=== PATIENT | female | born 2000 | race Two or more races ===

== ENCOUNTER 2019-01-30 09:57 | Emergency (ER) | payer OTHER ==
[~2019-01-30] VITALS: Ht 142.2 cm; Wt 37.3 kg
[2019-01-30 10:37] LABS: Basophils # (auto) 0 uL; Basophils % (auto) 0.4 % (0.0-2.0); Eosinophils # (auto) 0 uL; Eosinophils % (auto) 0.5 % (0.0-7.0); Hemoglobin 13.5 g/dL (12.2-16.2); Lymphocytes # (auto) 1.4 uL; Lymphocytes % (auto) 21.8 % (10.0-50.0); Mean Corpuscular Hgb Conc. 33.7 g/dL (32.0-36.0); Mean Corpuscular Volume 97.9 fL (80.0-100.0); Monocytes # (auto) 0.4 uL; Neutrophils # (auto) 4.5 uL; Neutrophils % (auto) 70.3 % (37.0-80.0); Platelet Count (auto) 231 10^3/uL (140-450); Red Blood Cells 4.09 10^6/uL (4.0-5.20); Red Cell Distribution Width 13.1 % (11.8-14.3); White Blood Cell 6.4 10^3/uL (4.4-10.8)
[2019-01-30 10:41] LABS: Urine Amorphous Crystal FEW /hpf (None Seen); Urine Bacteria NONE SEEN /hpf (None Seen); Urine Blood 2+ /uL (Negative); Urine Specific Gravity 1.015 (1.001-1.035); Urine WBC 1 /hpf (0 - 5)
[2019-01-30 10:42] LABS: Alcohol, Urine < 3.0 mg/dL (0-5); Amphetamine Screen, Urine NEGATIVE (NEGATIVE); Barbiturate Scree,Urine NEGATIVE (NEGATIVE); Benzodiazephine Screen, Urine NEGATIVE (NEGATIVE); Cannabinoid Screen, Urine POSITIVE (NEGATIVE); Cocaine Screen, Urine POSITIVE (NEGATIVE); Opiate Scree,Urine NEGATIVE (NEGATIVE); Phencyclidine Screen, Urine NEGATIVE (NEGATIVE)
[2019-01-30 10:54] LABS: Salicylate < 1.7 mg/dL (2.8-20.0)
[2019-01-30 11:02] LABS: Albumin 4.1 g/dL (3.4-5.0); BUN/Creatinine Ratio 11.6; Bilirubin, Total 0.5 mg/dL (0.2-1.0); Calcium 9.1 mg/dL (8.5-10.1); Total Protein 8.1 g/dL (6.4-8.2)
[2019-01-30] MEDS ORDERED: LORazepam 2MG/ML-1ML VIAL IV ONE (11:45)
[2019-01-30 12:08] LABS: Acetaminophen < 2.0 ug/mL (10-30)
[2019-01-30] MEDS ORDERED: SULFAMETHOX W/TRIMETH(800/160MG) DS TAB PO ONE (16:45)
[2019-01-30] MEDS ORDERED: ACETAMINOPHEN 500 MG TAB PO ONE (17:30)
[2019-01-30] MEDS ORDERED: LORazepam 0.5 MG TAB PO ONE (22:45)
[2019-01-30] MEDS ORDERED: ACETAMINOPHEN 325 MG TAB PO ONE (22:45)
[2019-01-31 05:10] VITALS: BP 112/79
[2019-01-31] MEDS ORDERED: CEPHALEXIN 250 MG CAP PO SCH (06:00)
== END 2019-01-31 05:57 | disposition short-term general hospital (02) ==
LOC: ER 10:02
DX: R45.851 Suicidal ideations (principal); F32.9 Major depressive disorder, single episode, unspecified; F41.9 Anxiety disorder, unspecified; F14.10 Cocaine abuse, uncomplicated
CPT/HCPCS: 36415; 80053; 80307; 80329; 81001; 81025; 85025; 96374; 99285; J2060

== ENCOUNTER 2019-03-03 23:11 | Emergency (ER) | payer OTHER ==
[~2019-03-03] VITALS: Ht 142.2 cm; Wt 36.3 kg
[2019-03-04 00:06] LABS: Basophils # (auto) 0 uL; Basophils % (auto) 0.3 % (0.0-2.0); Eosinophils # (auto) 0.1 uL; Eosinophils % (auto) 0.5 % (0.0-7.0); Hematocrit 41.6 % (36.0-46.0); Hemoglobin 14.3 g/dL (12.2-16.2); Lymphocytes # (auto) 2.2 uL; Lymphocytes % (auto) 19.2 % (10.0-50.0); Mean Corpuscular Hemoglobin 32.9 pg (28.0-32.0); Mean Corpuscular Hgb Conc. 34.4 g/dL (32.0-36.0); Mean Corpuscular Volume 95.9 fL (80.0-100.0); Monocytes # (auto) 0.7 uL; Monocytes % (auto) 6.2 % (0.0-12.0); Neutrophils # (auto) 8.4 uL; Neutrophils % (auto) 73.8 % (37.0-80.0); Platelet Count (auto) 352 10^3/uL (140-450); Red Blood Cells 4.34 10^6/uL (4.0-5.20); Red Cell Distribution Width 13.6 % (11.8-14.3); White Blood Cell 11.4 10^3/uL (4.4-10.8)
[2019-03-04 00:23] LABS: Albumin 4.2 g/dL (3.4-5.0); BUN/Creatinine Ratio 17.9; Calcium 8.4 mg/dL (8.5-10.1); Potassium 3.8 mmol/L (3.5-5.1)
[2019-03-04 00:26] LABS: Bilirubin, Total 0.2 mg/dL (0.2-1.0); Total Protein 8.1 g/dL (6.4-8.2)
[2019-03-04 01:47] LABS: Urine Bacteria NONE SEEN /hpf (None Seen); Urine Blood Negative /uL (Negative); Urine Specific Gravity 1.022 (1.001-1.035); Urine WBC 7 /hpf (0 - 5)
[2019-03-04 06:10] VITALS: BP 105/70
[2019-03-04] MEDS ORDERED: HYDROcodone-ACET 5/325MG TAB PO ONE (06:15)
== END 2019-03-04 06:21 | disposition home or self-care (01) ==
LOC: ER 23:15
DX: N83.202 Unspecified ovarian cyst, left side (principal); K59.00 Constipation, unspecified
CPT/HCPCS: 36415; 74176; 80053; 81001; 81025; 82150; 83690; 85025

== ENCOUNTER 2020-01-27 21:57 | Emergency (ER) | payer OTHER ==
[~2020-01-27] VITALS: Ht 142.2 cm; Wt 39.5 kg
[2020-01-27 22:38] VITALS: BP 119/96
[2020-01-27] MEDS ORDERED: FLUORESCEIN SOD 1 MG TEST STRIP RIGHTEYE ONE (23:00)
[2020-01-27] MEDS ORDERED: TETRACAINE HCL 0.5% OPTH(EYE) SOLN 4ML RIGHTEYE ONE (23:00)
== END 2020-01-27 23:25 | disposition home or self-care (01) ==
LOC: ER 21:57
DX: H10.31 Unspecified acute conjunctivitis, right eye (principal)

== ENCOUNTER 2020-05-09 20:40 | Emergency (ER) | payer OTHER ==
[~2020-05-09] VITALS: Ht 149.9 cm; Wt 49.9 kg
[2020-05-09 23:01] LABS: Basophils # (auto) 0 10 ^3/uL (0-0.2); Eosinophils # (auto) 0.1 10 ^3/uL (0-0.8); Lymphocytes # (auto) 1.7 10 ^3/uL (0.4-5.4); Monocytes # (auto) 0.4 10 ^3/uL (0-1.3)
[2020-05-09 23:04] LABS: Basophils % (auto) 0.2 % (0.0-2.0); Eosinophils % (auto) 0.9 % (0.0-7.0); Hematocrit 40.9 % (36.0-46.0); Hemoglobin 14.2 g/dL (12.2-16.2); Lymphocytes % (auto) 21.5 % (10.0-50.0); Mean Corpuscular Hemoglobin 32.5 pg (28.0-32.0); Mean Corpuscular Hgb Conc. 34.8 g/dL (32.0-36.0); Mean Corpuscular Volume 93.5 fL (80.0-100.0); Monocytes % (auto) 5.2 % (0.0-12.0); Neutrophils # (auto) 5.8 10 ^3/uL (1.6-8.6); Neutrophils % (auto) 72.2 % (37.0-80.0); Platelet Count (auto) 596 10^3/uL (140-450); Red Blood Cells 4.37 10^6/uL (4.0-5.20); Red Cell Distribution Width 13.9 % (11.8-14.3)
[2020-05-09] MEDS: ACETAMINOPHEN 500 MG TAB PO ONE (23:15)
[2020-05-09 23:21] LABS: Potassium 4.3 mmol/L (3.5-5.1)
[2020-05-09 23:27] LABS: Albumin 3.7 g/dL (3.4-5.0); BUN/Creatinine Ratio 17.9; Calcium 8.9 mg/dL (8.5-10.1)
[2020-05-09 23:29] LABS: Bilirubin, Total 0.1 mg/dL (0.2-1.0)
[2020-05-10 00:22] LABS: Urine Amorphous Crystal MOD /hpf (None Seen); Urine Bacteria FEW /hpf (None Seen); Urine Blood 2+ /uL (Negative); Urine Specific Gravity 1.019 (1.001-1.035); Urine WBC 1 /hpf (0 - 5)
[2020-05-10 02:00] VITALS: BP 120/85
== END 2020-05-10 02:40 | disposition home or self-care (01) ==
LOC: EDBD 20:40 → ER 20:40
DX: R10.33 Periumbilical pain (principal); N73.9 Female pelvic inflammatory disease, unspecified; F12.10 Cannabis abuse, uncomplicated; F14.10 Cocaine abuse, uncomplicated
CPT/HCPCS: 36415; 74176; 80053; 81001; 85025

== ENCOUNTER 2020-09-18 10:52 | Emergency (ER) | payer MEDICAID, OTHER ==
[~2020-09-18] VITALS: Ht 149.9 cm; Wt 43.1 kg
[2020-09-18 11:48] VITALS: BP 127/94
[2020-09-18 12:23] LABS: Urine Bacteria FEW /hpf (None Seen); Urine Blood Negative /uL (Negative); Urine Mucus FEW (None Seen); Urine Specific Gravity 1.014 (1.001-1.035); Urine WBC 17 /hpf (0 - 5)
[2020-09-18] MEDS ORDERED: ACETAMINOPHEN 500 MG TAB PO ONE (12:30)
[2020-09-18 12:35] LABS: Alcohol, Urine < 3.0 mg/dL (0-10); Amphetamine Screen, Urine NEGATIVE (NEGATIVE); Barbiturate Scree,Urine NEGATIVE (NEGATIVE); Benzodiazephine Screen, Urine NEGATIVE (NEGATIVE); Cannabinoid Screen, Urine NEGATIVE (NEGATIVE); Cocaine Screen, Urine NEGATIVE (NEGATIVE); Opiate Scree,Urine NEGATIVE (NEGATIVE); Phencyclidine Screen, Urine NEGATIVE (NEGATIVE)
== END 2020-09-18 13:42 | disposition home or self-care (01) ==
LOC: ER 10:52
DX: N76.0 Acute vaginitis (principal); B96.89 Other specified bacterial agents as the cause of diseases classified elsewhere; N39.0 Urinary tract infection, site not specified; Z90.49 Acquired absence of other specified parts of digestive tract
CPT/HCPCS: 80307; 81001; 81002; 81025; 87210

== ENCOUNTER 2022-06-30 20:21 | Emergency (ER) | payer MEDICAID, OTHER ==
[~2022-06-30] VITALS: Ht 149.9 cm; Wt 50.2 kg
[2022-07-01] MEDS ORDERED: IBUP800T27 PO (02:24)
[2022-07-01] MEDS ORDERED: CYCL-837 PO (02:24)
[2022-07-01] MEDS ORDERED: KETOROLAC TROMETH 60MG/2ML VIAL IM ONE (02:30)
[2022-07-01 03:24] LABS: Urine Bacteria NONE SEEN /hpf (None Seen); Urine Blood 2+ /uL (Negative); Urine Mucus FEW (None Seen); Urine Specific Gravity 1.012 (1.001-1.035); Urine WBC 13 /hpf (0 - 5)
[2022-07-01] MEDS ORDERED: SULF800T7 PO (03:42)
[2022-07-01 03:54] VITALS: BP 105/76
== END 2022-07-01 04:03 | disposition home or self-care (01) ==
LOC: ER 20:21
DX: S39.012A Strain of muscle, fascia and tendon of lower back, initial encounter (principal); N39.0 Urinary tract infection, site not specified; Z79.899 Other long term (current) drug therapy; Z88.6 Allergy status to analgesic agent; Z90.49 Acquired absence of other specified parts of digestive tract; X50.0XXA Overexertion from strenuous movement or load, initial encounter; Y93.89 Activity, other specified; Y92.89 Other specified places as the place of occurrence of the external cause; Y99.8 Other external cause status
CPT/HCPCS: 81001; 81025; 96372; 99283; J1885

== ENCOUNTER 2023-04-17 13:39 | Emergency (ER) | payer SELFPAY ==
[~2023-04-17] VITALS: Ht 142.2 cm; Wt 45.0 kg
[~2023-04-17 13:39] MED LIST: CYCL-837 PO; IBUP-1456 PO; SULF800T23 PO
[2023-04-17] MEDS ORDERED: HYDR2.5C39 TOP (15:05)
[2023-04-17] MEDS ORDERED: NAPR-746 PO (15:05)
[2023-04-17] MEDS ORDERED: CEPH500C PO (15:05)
[2023-04-17 15:16] VITALS: BP 133/98; PULSE 111; RESP 18; TEMP 98.7; O2SAT 99
== END 2023-04-17 15:21 | disposition home or self-care (01) ==
LOC: ER 13:39
DX: S30.820A Blister (nonthermal) of lower back and pelvis, initial encounter (principal); K64.4 Residual hemorrhoidal skin tags; Z98.890 Other specified postprocedural states; Z79.899 Other long term (current) drug therapy; X58.XXXA Exposure to other specified factors, initial encounter; Y93.89 Activity, other specified; Y92.89 Other specified places as the place of occurrence of the external cause; Y99.8 Other external cause status

== ENCOUNTER 2024-01-01 08:53 | Inpatient (IN) | payer MEDICAID, SELFPAY ==
[~2024-01-01] VITALS: Ht 142.2 cm; Wt 47.7 kg
[~2024-01-01 08:53] MED LIST changes: +CEPH500C PO; +HYDR2.5C39 TOP; +NAPR-746 PO
[2024-01-01] MEDS ORDERED: PHENAZOPYRIDINE HCL 100 MG TAB PO ONE (09:15)
[2024-01-01] MEDS: ACETAMINOPHEN 325 MG TAB PO ONE (09:55)
[2024-01-01] MEDS: ONDANSETRON ODT 4 MG TAB PO ONE (09:55)
[2024-01-01 10:31] LABS: Basophils # (auto) 0 10 ^3/uL (0-0.2); Basophils % (auto) 0.2 % (0.0-2.0); Eosinophils # (auto) 0 10 ^3/uL (0-0.8); Hematocrit 37.2 % (36.0-46.0); Hemoglobin 12.8 g/dL (12.2-16.2); Lymphocytes % (auto) 5.4 % (10.0-50.0); Mean Corpuscular Hemoglobin 32.9 pg (28.0-32.0); Mean Corpuscular Hgb Conc. 34.5 g/dL (32.0-36.0); Mean Corpuscular Volume 95.4 fL (80.0-100.0); Monocytes # (auto) 1.2 10 ^3/uL (0-1.3); Monocytes % (auto) 6.4 % (0.0-12.0); Neutrophils # (auto) 16.9 10 ^3/uL (1.6-8.6); Platelet Count (auto) 227 10^3/uL (140-450); Red Cell Distribution Width 13.7 % (11.8-14.3); White Blood Cell 19.2 10^3/uL (4.4-10.8)
[2024-01-01 10:43] LABS: Urine Bacteria FEW /hpf (None Seen); Urine Blood 2+ /uL (Negative); Urine Protein, UAD 1+ (Negative); Urine Specific Gravity 1.015 (1.001-1.035); Urine Urobilinogen Normal (Negative); Urine WBC 2354 /hpf (0 - 5); Urine WBC Clumps PRESENT /hpf (None Seen)
[2024-01-01 10:44] LABS: Urine Clarity Cloudy (Clear); Urine Color Yellow (Yellow)
[2024-01-01 10:45] LABS: Alanine Aminotransferase 20 U/L (7-40); Alkaline Phosphatase 66 U/L (46-116); Anion Gap 9 (5-15); Aspartate Aminotransferase 21 U/L (13-40); BUN/Creatinine Ratio 6.8 (10.0-20.0); Bilirubin, Total 0.9 mg/dL (0.2-1.0); Blood Urea Nitrogen 7 mg/dL (9-23); Calcium 9.7 mg/dL (8.7-10.4); Carbon Dioxide 25 mmol/L (20-31); Chloride 105 mmol/L (98-107); Glucose 129 mg/dL (74-106); Potassium 3.5 mmol/L (3.5-5.1); Sodium 139 mmol/L (136-145)
[2024-01-01 11:21] VITALS: PULSE 110; RESP 20; O2SAT 99
[2024-01-01] MEDS: levoFLOXacin 500MG 100 ML IV ONE (11:36)
[2024-01-01] MEDS: SODIUM CHLORIDE 0.9% 1,000 ML IV ONE ×2 (11:36→12:45)
[2024-01-01] MEDS: cefTRIAXone 1GM/50ML D5W 50 ML IV ONE (11:54)
[2024-01-01] MEDS: diphenhdrAMINE HCL 50 MG/1 ML VL IV ONE (11:54)
[2024-01-01] MEDS: ONDANSETRON HCL 4 MG/2 ML VIAL IV ONE (13:27)
[2024-01-01] MEDS: MORPHINE SULFATE 4 MG/ML SYR/VIAL IV ONE (13:27)
[2024-01-01] MEDS ORDERED: ACETAMINOPHEN 325 MG TAB PO PRN (13:30)
[2024-01-01 15:54] VITALS: BP 98/52; PULSE 107; RESP 20; TEMP 100.3; O2SAT 97
[2024-01-01 17:07] VITALS: BP 98/2; PULSE 107; RESP 20; TEMP 101.3; O2SAT 97
[2024-01-01] MEDS: HYDROcodone-ACET 5/325MG TAB PO PRN (17:55)
[2024-01-01] MEDS: KETOROLAC TROMETH 30 MG/ML 1ML VIAL IV PRN (20:56)
[2024-01-01 21:00] VITALS: BP 108/65; PULSE 100; RESP 19; TEMP 98.2; O2SAT 97
[2024-01-01] MEDS: ONDANSETRON HCL 4 MG/2 ML VIAL IV PRN (22:47)
[2024-01-02 01:06] VITALS: BP 95/64; PULSE 75; RESP 19; TEMP 98.5; O2SAT 98
[2024-01-02 05:00] VITALS: BP 93/56; PULSE 80; RESP 17; TEMP 98.5; O2SAT 98
[2024-01-02 06:45] LABS: Basophils # (auto) 0 10 ^3/uL (0-0.2); Basophils % (auto) 0.1 % (0.0-2.0); Eosinophils # (auto) 0 10 ^3/uL (0-0.8); Eosinophils % (auto) 0.1 % (0.0-7.0); Hematocrit 33.1 % (36.0-46.0); Hemoglobin 11.5 g/dL (12.2-16.2); Lymphocytes # (auto) 1.8 10 ^3/uL (0.4-5.4); Lymphocytes % (auto) 9.4 % (10.0-50.0); Mean Corpuscular Hemoglobin 33.3 pg (28.0-32.0); Mean Corpuscular Hgb Conc. 34.6 g/dL (32.0-36.0); Mean Corpuscular Volume 96.2 fL (80.0-100.0); Monocytes # (auto) 0.8 10 ^3/uL (0-1.3); Monocytes % (auto) 4.5 % (0.0-12.0); Neutrophils # (auto) 16.4 10 ^3/uL (1.6-8.6); Neutrophils % (auto) 85.9 % (37.0-80.0); Platelet Count (auto) 160 10^3/uL (140-450); Red Blood Cells 3.44 10^6/uL (4.0-5.20); Red Cell Distribution Width 13.9 % (11.8-14.3)
[2024-01-02 06:50] LABS: Anion Gap 8 (5-15); Calcium 8.3 mg/dL (8.7-10.4); Carbon Dioxide 22 mmol/L (20-31); Chloride 108 mmol/L (98-107); Potassium 3.5 mmol/L (3.5-5.1); Sodium 138 mmol/L (136-145)
[2024-01-02 06:56] LABS: BUN/Creatinine Ratio 8.1 (10.0-20.0); Blood Urea Nitrogen 7 mg/dL (9-23); Glucose 94 mg/dL (74-106)
[2024-01-02 09:00] VITALS: BP 106/65; PULSE 95; RESP 20; TEMP 100.4; O2SAT 95
[2024-01-02] MEDS: cefTRIAXone 1GM/50ML D5W 50 ML IV SCH (09:07)
[2024-01-02 13:12] VITALS: BP 100/58; PULSE 76; RESP 20; TEMP 98.9; O2SAT 97
[2024-01-02 17:00] VITALS: BP 134/87; PULSE 91; RESP 18; TEMP 97.6; O2SAT 98
[2024-01-02 21:00] VITALS: BP 146/79; PULSE 90; RESP 18; TEMP 98.6; O2SAT 99
[2024-01-03] VITALS (8 sets, daily range): BP systolic 108–134; BP diastolic 59–80; PULSE 55–123; RESP 16–21; TEMP 97.5–98.2; O2SAT 96–99
[2024-01-03 09:03] LABS: Hepatitis B Surface Antigen Negative (Negative)
[2024-01-03 09:28] LABS: Hepatitis B Core IgM Negative
[2024-01-03 09:29] LABS: Hepatitis A Ab IgM Negative; Hepatitis C Antibody Negative (Negative)
[2024-01-03] MEDS: AZITHROMYCIN 500MG/ 250ML 250 ML IV ONE (13:08)
[2024-01-03] MEDS: guaiFENesin-DM 100/10mg/5ml SYR PO PRN (13:08)
[2024-01-03] MEDS: SODIUM CHLORIDE 0.9% 1,000 ML IV SCH (13:09)
[2024-01-03] MEDS: cefTRIAXone 1GM/50ML D5W 50 ML IV SCH (23:03)
[2024-01-04] VITALS (9 sets, daily range): BP systolic 116–144; BP diastolic 63–94; PULSE 55–106; RESP 16–18; TEMP 97.6–99.7; O2SAT 95–100
[2024-01-04 00:02] LABS: COVID19 ANTIGEN SOFIA FIA NEGATIVE (NEGATIVE)
[2024-01-04 07:27] LABS: Anion Gap 9 (5-15); Carbon Dioxide 23 mmol/L (20-31); Chloride 110 mmol/L (98-107); Potassium 3.5 mmol/L (3.5-5.1); Sodium 142 mmol/L (136-145)
[2024-01-04 07:28] LABS: Calcium 8.4 mg/dL (8.7-10.4)
[2024-01-04 07:33] LABS: Glucose 95 mg/dL (74-106)
[2024-01-04 07:35] LABS: BUN/Creatinine Ratio 7.4 (10.0-20.0); Blood Urea Nitrogen < 5 mg/dL (9-23)
[2024-01-04 07:47] LABS: Basophils # (auto) 0 10 ^3/uL (0-0.2); Basophils % (auto) 0.2 % (0.0-2.0); Eosinophils # (auto) 0.1 10 ^3/uL (0-0.8); Eosinophils % (auto) 2.2 % (0.0-7.0); Hematocrit 29.8 % (36.0-46.0); Hemoglobin 10.3 g/dL (12.2-16.2); Lymphocytes # (auto) 1.4 10 ^3/uL (0.4-5.4); Lymphocytes % (auto) 28.3 % (10.0-50.0); Mean Corpuscular Hgb Conc. 34.7 g/dL (32.0-36.0); Mean Corpuscular Volume 95.2 fL (80.0-100.0); Monocytes # (auto) 0.7 10 ^3/uL (0-1.3); Monocytes % (auto) 13.5 % (0.0-12.0); Neutrophils # (auto) 2.8 10 ^3/uL (1.6-8.6); Neutrophils % (auto) 55.8 % (37.0-80.0); Platelet Count (auto) 184 10^3/uL (140-450); Red Blood Cells 3.13 10^6/uL (4.0-5.20); Red Cell Distribution Width 13.7 % (11.8-14.3)
[2024-01-04] MEDS: AZITHROMYCIN 250 MG TAB PO SCH (09:54)
[2024-01-04] MEDS ORDERED: AZITHROMYCIN 500MG/ 250ML 250 ML IV SCH (11:00)
[2024-01-05] VITALS (7 sets, daily range): BP systolic 101–136; BP diastolic 46–88; PULSE 54–106; RESP 17–20; TEMP 97–99.5; O2SAT 96–98
[2024-01-05 10:15] LABS: Basophils # (auto) 0 10 ^3/uL (0-0.2); Basophils % (auto) 0.2 % (0.0-2.0); Eosinophils # (auto) 0.2 10 ^3/uL (0-0.8); Eosinophils % (auto) 2.8 % (0.0-7.0); Hematocrit 34.4 % (36.0-46.0); Hemoglobin 11.7 g/dL (12.2-16.2); Lymphocytes # (auto) 1.2 10 ^3/uL (0.4-5.4); Lymphocytes % (auto) 21.7 % (10.0-50.0); Mean Corpuscular Hemoglobin 32.4 pg (28.0-32.0); Mean Corpuscular Hgb Conc. 34.1 g/dL (32.0-36.0); Mean Corpuscular Volume 94.9 fL (80.0-100.0); Monocytes # (auto) 0.5 10 ^3/uL (0-1.3); Monocytes % (auto) 9.5 % (0.0-12.0); Neutrophils # (auto) 3.7 10 ^3/uL (1.6-8.6); Neutrophils % (auto) 65.8 % (37.0-80.0); Platelet Count (auto) 276 10^3/uL (140-450); Red Blood Cells 3.63 10^6/uL (4.0-5.20); Red Cell Distribution Width 13.7 % (11.8-14.3); White Blood Cell 5.6 10^3/uL (4.4-10.8)
[2024-01-05] MEDS: MORPHINE SULFATE INJ 2 MG/ml SYRG IV PRN (11:40)
[2024-01-05] MEDS ORDERED: IOHEXOL 300 MG/ML 100ML BOTTLE IJ ONE (16:16)
[2024-01-06] VITALS (8 sets, daily range): BP systolic 90–128; BP diastolic 52–98; PULSE 66–81; RESP 16–18; TEMP 97.6–98.7; O2SAT 92–100
[2024-01-06 05:54] LABS: Chloride 107 mmol/L (98-107); Potassium 3.8 mmol/L (3.5-5.1); Sodium 141 mmol/L (136-145)
[2024-01-06 05:55] LABS: Anion Gap 9 (5-15); Carbon Dioxide 25 mmol/L (20-31)
[2024-01-06 05:56] LABS: Calcium 8.8 mg/dL (8.7-10.4)
[2024-01-06 05:58] LABS: Basophils # (auto) 0 10 ^3/uL (0-0.2); Basophils % (auto) 0.3 % (0.0-2.0); Eosinophils # (auto) 0.3 10 ^3/uL (0-0.8); Eosinophils % (auto) 4.8 % (0.0-7.0); Hematocrit 31.8 % (36.0-46.0); Hemoglobin 11.2 g/dL (12.2-16.2); Lymphocytes # (auto) 1.5 10 ^3/uL (0.4-5.4); Mean Corpuscular Hemoglobin 33.1 pg (28.0-32.0); Mean Corpuscular Hgb Conc. 35.1 g/dL (32.0-36.0); Mean Corpuscular Volume 94.2 fL (80.0-100.0); Monocytes # (auto) 0.6 10 ^3/uL (0-1.3); Monocytes % (auto) 12.1 % (0.0-12.0); Neutrophils # (auto) 2.9 10 ^3/uL (1.6-8.6); Neutrophils % (auto) 54.8 % (37.0-80.0); Nucleated Red Blood Cells % 0.1 %; Platelet Count (auto) 309 10^3/uL (140-450); Red Blood Cells 3.38 10^6/uL (4.0-5.20); Red Cell Distribution Width 13.6 % (11.8-14.3); White Blood Cell 5.3 10^3/uL (4.4-10.8)
[2024-01-06 06:01] LABS: Glucose 82 mg/dL (74-106)
[2024-01-06 06:14] LABS: BUN/Creatinine Ratio 6.8 (10.0-20.0); Blood Urea Nitrogen < 5 mg/dL (9-23)
[2024-01-06] MEDS ORDERED: LEVO500T91 PO (14:03)
[2024-01-06] MEDS ORDERED: CEFD300C2 PO (15:11)
== END 2024-01-06 15:45 | disposition home or self-care (01) | DRG 871 ==
LOC: ER 08:53 → OVERFLOW 13:24 → CENTRAL 15:21 → WEST WING 01-03 02:42
PROVIDERS: ADMIT Registered Nurse General Practice; ATTEND Internal Medicine
DX: A40.9 Streptococcal sepsis, unspecified (principal); N17.0 Acute kidney failure with tubular necrosis; N10 Acute pyelonephritis; B96.20 Unspecified Escherichia coli [E. coli] as the cause of diseases classified elsewhere; Z20.822 Contact with and (suspected) exposure to COVID-19; N20.0 Calculus of kidney; Z88.1 Allergy status to other antibiotic agents; Z90.49 Acquired absence of other specified parts of digestive tract
CPT/HCPCS: 36415; 71045; 74176; 74177; 80048; 80053; 80074; 81001; 81025; 83036; 84702; 85025; 87086; 87088; 87186; 87426; 96365; 96368; 96375; G0378; J1885; J1956; J2405; Q0162

== ENCOUNTER 2024-01-11 16:24 | Emergency (ER) | payer SELFPAY ==
[~2024-01-11] VITALS: Ht 142.2 cm; Wt 44.6 kg
[~2024-01-11 16:24] MED LIST changes: +CEFD300C2 PO; -CEPH500C PO; -CYCL-837 PO; -HYDR2.5C39 TOP; -IBUP-1456 PO; -NAPR-746 PO; -SULF800T23 PO
[2024-01-11 16:35] VITALS: BP 115/90; PULSE 81; RESP 16; O2SAT 98
[2024-01-11] MEDS: KETOROLAC TROMETH 30 MG/ML 1ML VIAL IM ONE (17:06)
[2024-01-11 17:56] LABS: Urine Bacteria None Seen /hpf (None Seen)
[2024-01-11 18:15] LABS: Urine Blood Negative /uL (Negative); Urine Clarity Clear (Clear); Urine Color Colorless (Yellow); Urine Protein, UAD Negative (Negative); Urine Specific Gravity 1.007 (1.001-1.035); Urine Urobilinogen Normal (Negative); Urine WBC 1 /hpf (0 - 5)
== END 2024-01-11 18:45 | disposition left against medical advice (07) ==
LOC: ER 16:24
DX: N12 Tubulo-interstitial nephritis, not specified as acute or chronic (principal); Z87.440 Personal history of urinary (tract) infections; Z87.442 Personal history of urinary calculi; Z88.1 Allergy status to other antibiotic agents
CPT/HCPCS: 81001; 96372; 99283; J1885

== ENCOUNTER 2024-01-12 10:02 | Emergency (ER) | payer SELFPAY ==
[~2024-01-12] VITALS: Ht 152.4 cm; Wt 44.1 kg
[2024-01-12 10:49] LABS: Urine Bacteria FEW /hpf (None Seen); Urine Blood TRACE /uL (Negative); Urine Clarity Clear (Clear); Urine Color Colorless (Yellow); Urine Protein, UAD Negative (Negative); Urine Specific Gravity 1.003 (1.001-1.035); Urine Urobilinogen Normal (Negative); Urine WBC <1 /hpf (0 - 5)
[2024-01-12 11:05] VITALS: O2SAT 95
[2024-01-12] MEDS: SODIUM CHLORIDE 0.9% 1,000 ML IV ONE (11:15)
[2024-01-12 11:35] VITALS: TEMP 98.2
[2024-01-12 11:38] LABS: Basophils # (auto) 0 10 ^3/uL (0-0.2); Eosinophils # (auto) 0 10 ^3/uL (0-0.8); Lymphocytes # (auto) 1.9 10 ^3/uL (0.4-5.4); Monocytes # (auto) 0.3 10 ^3/uL (0-1.3)
[2024-01-12 11:40] LABS: Basophils % (auto) 0.3 % (0.0-2.0); Eosinophils % (auto) 0.7 % (0.0-7.0); Hematocrit 38.4 % (36.0-46.0); Hemoglobin 13.2 g/dL (12.2-16.2); Lymphocytes % (auto) 32.3 % (10.0-50.0); Mean Corpuscular Hemoglobin 32.4 pg (28.0-32.0); Mean Corpuscular Hgb Conc. 34.4 g/dL (32.0-36.0); Mean Corpuscular Volume 94.3 fL (80.0-100.0); Monocytes % (auto) 5.5 % (0.0-12.0); Neutrophils # (auto) 3.7 10 ^3/uL (1.6-8.6); Neutrophils % (auto) 61.2 % (37.0-80.0); Platelet Count (auto) 658 10^3/uL (140-450); Red Blood Cells 4.08 10^6/uL (4.0-5.20); Red Cell Distribution Width 14.1 % (11.8-14.3)
[2024-01-12 11:47] LABS: Alanine Aminotransferase 17 U/L (7-40); Albumin 4.9 g/dL (3.2-4.8); Alkaline Phosphatase 60 U/L (46-116); Anion Gap 5 (5-15); Aspartate Aminotransferase 15 U/L (13-40); BUN/Creatinine Ratio 10.4 (10.0-20.0); Bilirubin, Total 0.4 mg/dL (0.2-1.0); Blood Urea Nitrogen 8 mg/dL (9-23); Calcium 10.2 mg/dL (8.7-10.4); Carbon Dioxide 27 mmol/L (20-31); Chloride 107 mmol/L (98-107); Glucose 96 mg/dL (74-106); Potassium 4.1 mmol/L (3.5-5.1); Sodium 139 mmol/L (136-145); Total Protein 8.1 g/dL (5.7-8.2)
[2024-01-12] MEDS: fentaNYL CITRATE 100 MCG/2 ML VL IV ONE (11:54)
[2024-01-12] MEDS: IOHEXOL 300 MG/ML 100ML BOTTLE IJ ONE (12:11)
[2024-01-12 13:35] VITALS: BP 107/65; PULSE 70; RESP 18; O2SAT 97
[2024-01-12 14:47] LABS: Erythrocyte Sedimentation Rate 21 mm/hr (0-20)
== END 2024-01-12 18:02 | disposition left against medical advice (07) ==
LOC: ER 10:02
DX: R10.32 Left lower quadrant pain (principal); R10.2 Pelvic and perineal pain; Z87.440 Personal history of urinary (tract) infections; Z88.1 Allergy status to other antibiotic agents; Z90.49 Acquired absence of other specified parts of digestive tract; Z98.890 Other specified postprocedural states
CPT/HCPCS: 36415; 74177; 76830; 76856; 80053; 81001; 83605; 84702; 85025; 85652; 86141; 93005; 96361; 96374; 99285; J3010; J7030; Q9967

== ENCOUNTER 2024-03-17 14:54 | Emergency (ER) | payer SELFPAY ==
[~2024-03-17] VITALS: Ht 152.4 cm; Wt 41.0 kg
[2024-03-17 15:19] VITALS: BP 115/93; PULSE 102; RESP 14; O2SAT 100
[2024-03-17] MEDS ORDERED: ONDANSETRON HCL 4 MG/2 ML VIAL IV ONE (15:45)
[2024-03-17] MEDS ORDERED: SODIUM CHLORIDE 0.9% 1,000 ML IVB ONE (15:45)
[2024-03-17] MEDS ORDERED: MORPHINE SULFATE 4 MG/ML SYR/VIAL IV ONE (15:45)
--- NOTE | 2024-03-17 16:02 | ED.PDOC ---
GI ASSESSMENT HPI Comments 23 y.o female with PMH of ovarian cysts, cystectomy, kidney stones, Lithotripsy, presents to the ED via EMS for a chief complaint of left lower quadrant pain radiating to her left lower back and left buttock that started today around 0800 associated with hematuria. Patient describes pain as sharp, constant, worsen when sitting or bearing weight. Patient reports pain came on set spontaneously, denies any recent falls, trauma, nausea, vomiting, diarrhea, fever, chills. Patient reports possibility of but is unsure. Chief Complaint: Abdominal Pain Time Seen by MD: 15:11 Primary Care Provider: DEVIN Miller Notes: Nurses Notes, Service Greeter Notes, Medications, Allergies Allergies: Coded Allergies: Levofloxacin (Verified Allergy, Intermediate, 01/01/24) Home Meds Active Scripts Cefdinir (Cefdinir) 300 Mg Cap, 300 MG PO BID for 10 Days, #20 CAP Prov:ALINE ASENCIO MD 01/06/24 Information Source: Patient, Emergency Med Personnel Mode of Arrival: EMS Timing: Hours Duration: Since onset Quality: Sharp Vomitus: None Stool: Normal Severity: Moderate Recent: None Recent Hx of: None Pain Location: LLQ Modifying Factors: Nothing Associated sign and symptoms: Abdominal Pain Past Medical History PAST MEDICAL HISTORY: Kidney Stones, UTI'S Surgical History: Denies all surgeries Surgical History (Other): Lithotripsy, ovarian cystectomy 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 Family History Family History: Reviewed,noncontributory to illness Social History Smoker: Non-Smoker Alcohol: Denies ETOH Use Drugs: Denies Drug Use Lives In: Home Constitutional: denies: chills, diaphoresis, fatigue, fever, malaise, sweats, weakness, others EENTM: denies: blurred vision, double vision, ear bleeding, ear discharge, ear drainage, ear pain, ear ringing, eye pain, eye redness, hearing loss, mouth pain, mouth swelling, nasal discharge, nose bleeding, nose congestion, nose pain, photophobia, tearing, throat pain, throat swelling, voice changes, others Respiratory: denies: cough, hemoptysis, orthopnea, SOB at rest, shortness of breath, SOB with excertion, stridor, wheezing, others Cardiovascular: denies: chest pain, dizzy spells, diaphoresis, Dyspnea on exertion, edema, irregular heart beat, left arm pain, lightheadedness, palpitations, PND, syncope, others Gastrointestinal: reports: abdominal pain; denies: abdomen distended, blood streaked bowels, constipated, diarrhea, dysphagia, difficulty swallowing, hematemesis, melena, nausea, poor appetite, poor fluid intake, rectal bleeding, rectal pain, vomiting, others Genitourinary: reports: hematuria; denies: abnormal vagina bleeding, burning, dyspareunia, dysuria, flank pain, frequency, incontinence, pain, , vagina discharge, urgency, others Neurological: denies: dizziness, fainting, headache, left sided numbness, left sided weakness, numbness, paresthesia, pre-existing deficit, right sided numbness, right sided weakness, seizure, speech problems, tingling, tremors, we akness, others Musculoskeletal: reports: back pain; denies: gout, joint pain, joint swelling, muscle pain, muscle stiffness, neck pain, others Integumetry: denies: bruises, change in color, change in hair/nails, dryness, laceration, lesions, lumps, rash, wounds, others Allergic/Immunocompromised: denies: Difficulty Healing, Frequent Infections, Hives, Itching, others Hematologic/Lymphatic: denies: anemia, blood clots, easy bleeding, easy bruising, swollen glands, others Endocrine: denies: excessive hunger, excessive sweating, excessive thirst, excessive urination, flushing, intolerance to cold, intolerance to heat, unexplained weight gain, unexplained weight loss, others Psychiatric: denies: anxiety, bipolar disorder, depression, hopeless, panic disorder, schizophrenia, sleepless, suicidal, others All Other Systems: Reviewed and Negative Physical Exam General Appearance: Moderate Distress HEENT: Normal ENT Inspection, Pharynx Normal, TMs Normal Neck: Full Range of Motion, Non-Tender, Normal, Normal Inspection Respiratory: Chest Non-Tender, Lungs Clear, No Accessory Muscle Use, No Respiratory Distress, Normal Breath Sounds Cardiovascular: No Edema, No JVD, No Murmur, No Gallop, Normal Peripheral Pulses, Regular Rate/Rhythm Breast Exam: Deferred Gastrointestinal: Diffuse Genitalia: Deferred Pelvic: Deferred Rectal: Deferred Extremities: No calf tenderness, Normal capillary refill, Normal inspection, Normal range of motion, Non-tender, No pedal edema Musculoskeletal : Apperance: Normal Neurologic: Alert, 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 Was a procedure done?: No GI differential Dx Differential Diagnosis: Bowel Obstruction, Constipation, Diverticular disease, Esophagitis, Gastritis/PUD, Gastroenteritis, Ovarian cyst/torsion, Trauma intraabdominal, Urinary Obstruction, UTI, Electrolyte Imbalance, , Viral X-Ray, Labs, Meds, VS Vital Signs Date Time Temp Pulse Resp B/P (MAP) Pulse Ox O2 Delivery O2 Flow Rate FiO2 03/17/24 15:19 98.9 102 14 115/93 (100) 100 Patient alert. Complaining of abdominal pain. Was seen here for the same symptom few weeks ago. Vitals stable. Answering all questions. Establish intravenous access. Was given fluids. Was given morphine. Was given Zofran. Reviewed her previous visit. Explained to the patient. Continue cardiac monitoring. Time of 1ST Reevaluation: 16:01 Reevaluation 1ST: Unchanged Patient Education/Counseling: Diagnosis, Treatment, Prognosis Family Education/Counseling: No Family Present Additional Information I reviewed the following notes from patient's past medical encounters: LAB, PHA, and CT ABD The following tests were ordered, and results were reviewed by me: CT ABD, LAB Additional Information was gathered from interviewing the following independent historians: Paramedics I reviewed and agreed with the following test results read by other providers: CT ABD I discussed treatment and results with medical personnel and patient Departure 1 Departure Time of Disposition: 16:17 Impression: Primary Impression: Acute abdominal pain Additional Impression: Non-specific colitis Disposition: ADMITTED INPATIENT Admit to: Med Surg Condition: Guarded Critical Care Note Critical Care Time?: Yes (45 min-critical care time only) Stability Stability form required: No I personally scribed for BERNARDA MOLINA MD ([email or web address]) on 03/17/24 at 16:02. Electronically submitted by Laquita Mantilla ([facility]). BERNARDA MOLINA MD Mar 17, 2024 16:02
== END 2024-03-17 16:20 | disposition left against medical advice (07) ==
LOC: EDBD 14:54 → ER 14:54
DX: K52.9 Noninfective gastroenteritis and colitis, unspecified (principal); Z87.440 Personal history of urinary (tract) infections; Z87.442 Personal history of urinary calculi; Z88.1 Allergy status to other antibiotic agents

== ENCOUNTER 2024-06-07 19:17 | Emergency (ER) | payer SELFPAY ==
[~2024-06-07] VITALS: Ht 142.2 cm; Wt 40.5 kg
[2024-06-07 19:55] LABS: Basophils # (auto) 0 10 ^3/uL (0-0.2); Basophils % (auto) 0.3 % (0.0-2.0); Eosinophils # (auto) 0 10 ^3/uL (0-0.8); Eosinophils % (auto) 0.1 % (0.0-7.0); Hematocrit 43.3 % (36.0-46.0); Hemoglobin 14.6 g/dL (12.2-16.2); Lymphocytes # (auto) 1.1 10 ^3/uL (0.4-5.4); Lymphocytes % (auto) 11.8 % (10.0-50.0); Mean Corpuscular Hemoglobin 32.6 pg (28.0-32.0); Mean Corpuscular Hgb Conc. 33.8 g/dL (32.0-36.0); Mean Corpuscular Volume 96.6 fL (80.0-100.0); Monocytes # (auto) 0.3 10 ^3/uL (0-1.3); Monocytes % (auto) 3.2 % (0.0-12.0); Neutrophils # (auto) 8.1 10 ^3/uL (1.6-8.6); Neutrophils % (auto) 84.6 % (37.0-80.0); Platelet Count (auto) 297 10^3/uL (140-450); Red Blood Cells 4.48 10^6/uL (4.0-5.20); Red Cell Distribution Width 13.5 % (11.8-14.3); White Blood Cell 9.5 10^3/uL (4.4-10.8)
[2024-06-07 19:57] LABS: Urine Bacteria None Seen /hpf (None Seen)
[2024-06-07 20:10] LABS: Urine Amorphous Crystal FEW /hpf (None Seen); Urine Blood 3+ /uL (Negative); Urine Clarity Turbid (Clear); Urine Color Colorless (Yellow); Urine Protein, UAD Negative (Negative); Urine Specific Gravity 1.017 (1.001-1.035); Urine Squamous Epithelial Cell FEW /hpf (<5); Urine Urobilinogen Normal (Negative); Urine pH 7.5 (5.0-9.0)
[2024-06-07 20:21] LABS: Alanine Aminotransferase 13 U/L (7-40); Alkaline Phosphatase 61 U/L (46-116); Anion Gap 7 (5-15); Aspartate Aminotransferase 20 U/L (13-40); BUN/Creatinine Ratio 11.4 (10.0-20.0); Bilirubin, Total 0.5 mg/dL (0.2-1.0); Calcium 10.1 mg/dL (8.7-10.4); Carbon Dioxide 27 mmol/L (20-31); Chloride 107 mmol/L (98-107); Glucose 88 mg/dL (74-106); Potassium 3.6 mmol/L (3.5-5.1); Sodium 141 mmol/L (136-145); Total Protein 7.7 g/dL (5.7-8.2)
[2024-06-07 20:22] LABS: Albumin 4.9 g/dL (3.2-4.8); Blood Urea Nitrogen 9 mg/dL (9-23); Lipase 86 U/L (12-53)
--- NOTE | 2024-06-07 20:50 | DVH ---
Exam: CT AB PEL WO CON-NO ORAL OR IV History: LLQ PAIN Comparison Study: CT CT AB PEL WO CON-NO ORAL OR IV on DOS: 01/01/24, CT ABD PELVIS WO CONTRAST on DOS : 05/09/20, CT ABD PELVIS WO CONTRAST on DOS: 03/04/19 Contrast: None TECHNIQUE: Multidetector CT of and pelvis without IV contrast. Radiation Dose Information: CT Dose: CTDI volume is 6.09 mGy. Dose-length product is 304.51 mGy*cm FINDINGS: Lung bases are clear. Heart size is normal lower esophagus is unremarkable. There is a stone in the c ollecting system of the left kidney measures approximately 2 x 4 mm in size. Liver and spleen are nor mal. Gallbladder is unremarkable. Adrenals are unremarkable. The left kidney stone is in the superior pole Gastrointestinal tract is unremarkable with no evidence for obstruction. I do not see any evidence fo r appendicitis and I do not identify the appendix there are no fluid collections in the right lower q uadrant. Uterus is anteverted do not see significant fluid in the cul-de-sac the bladder is contract ed thoracolumbar spine is normal in the discs are unremarkable rectosigmoid is unremarkable. No evide nce for hernia. IMPRESSION: 1. There is a 2 x 4 mm stone in the superior pole of the left kidney without evidence for hydronephro sis or hydroureter. Otherwise unremarkable study
--- NOTE | 2024-06-07 21:34 | ED.PDOC ---
GI ASSESSMENT HPI Comments Patient states she has been dealing with intermittent abdominal pain over the last five years. States she was had 2-3 surgeries for ovarian cysts and other complications. States over the last three days left lower quadrant abdominal pain has started come on and becoming worse. No fevers no chills. States he was have nausea vomiting and diarrhea. Has been given Soma, tramadol, oxycodone for abdominal pains by her GI specialist. States she took 150 mg of tramadol prior to arrival approximate 4 hours ago. Denies any urinary symptoms. 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 Family History Family History: Reviewed,noncontributory to illness Social History Smoker: Non-Smoker Alcohol: Denies ETOH Use Drugs: Denies Drug Use Lives In: Home Constitutional: denies: chills, diaphoresis, fatigue, fever, malaise, sweats, weakness, others EENTM: denies: blurred vision, double vision, ear bleeding, ear discharge, ear drainage, ear pain, ear ringing, eye pain, eye redness, hearing loss, mouth pain, mouth swelling, nasal discharge, nose bleeding, nose congestion, nose pain, photophobia, tearing, throat pain, throat swelling, voice changes, others Respiratory: denies: cough, hemoptysis, orthopnea, SOB at rest, shortness of breath, SOB with excertion, stridor, wheezing, others Cardiovascular: denies: chest pain, dizzy spells, diaphoresis, Dyspnea on exertion, edema, irregular heart beat, left arm pain, lightheadedness, palpitations, PND, syncope, others Gastrointestinal: reports: abdominal pain, diarrhea, nausea, vomiting Genitourinary: denies: abnormal vagina bleeding, burning, dyspareunia, dysuria, flank pain, frequency, hematuria, incontinence, pain, , vagina discharge, urgency, others Neurological: denies: dizziness, fainting, headache, left sided numbness, left sided weakness, numbness, paresthesia, pre-existing deficit, right sided numbness, right sided weakness, seizure, speech problems, tingling, tremors, weakness, others Musculoskeletal: denies: back pain, gout, joint pain, joint swelling, muscle pain, muscle stiffness, neck pain, others Integumetry: denies: bruises, change in color, change in hair/nails, dryness, laceration, lesions, lumps, rash, wounds, others Allergic/Immunocompromised: denies: Difficulty Healing, Frequent Infections, Hives, Itching, others Hematologic/Lymphatic: denies: anemia, blood clots, easy bleeding, easy bruising, swollen glands, others Physical Exam General Appearance: No Apparent Distress, Normal HEENT: Normal ENT Inspection, Pharynx Normal, TMs Normal Neck: Full Range of Motion, Non-Tender, Normal, Normal Inspection Respiratory: Chest Non-Tender, Lungs Clear, No Accessory Muscle Use, No Respiratory Distress, Normal Breath Sounds Cardiovascular: No Edema, No JVD, No Murmur, No Gallop, Normal Peripheral Pulses, Regular Rate/Rhythm Breast Exam: Deferred Gastrointestinal: No Organomegaly, Non Tender, No Pulsatile Mass, Normal Bowel Sounds, Soft Genitalia: Deferred Pelvic: Deferred Rectal: Deferred Extremities: No calf tenderness, Normal capillary refill, Normal inspection, Normal range of motion, Non-tender, No pedal edema Musculoskeletal : Apperance: Normal Neurologic: Alert, rehabilitation teacher II-XII nml as Tested, No Motor Deficits, Normal Affect, Normal Mood, No Sensory Deficits Cerebellar Function: Normal Reflexes: Normal Skin: Dry, Normal Color, Warm Lymphatic: No Adenopathy Was a procedure done? Was a procedure done?: No GI differential Dx Differential Diagnosis: Gastritis/PUD, Gastroenteritis, Stress Ulcer, Kidney Stone X-Ray, Labs, Meds, VS Vital Signs Date Time Temp Pulse Resp B/P (MAP) Pulse Ox O2 Delivery O2 Flow Rate FiO2 06/07/24 19:44 97.7 61 18 116/44 (68) 100 Lab Test 06/07/24 19:48 06/07/24 19:45 Range/Units White Blood Count 9.5 4.4-10.8 10^3/uL Red Blood Count 4.48 4.0-5.20 10^6/uL Hemoglobin 14.6 12.2-16.2 g/dL Hematocrit 43.3 36.0-46.0 % Mean Corpuscular Volume 96.6 80.0-100.0 fL Mean Corpuscular Hemoglobin 32.6 H 28.0-32.0 pg Mean Corpuscular Hemoglobin Concent 33.8 32.0-36.0 g/dL Red Cell Distribution Width 13.5 11.8-14.3 % Platelet Count 297 140-450 10^3/uL Mean Platelet Volume 7.0 6.9-10.8 fL Neutrophils (%) (Auto) 84.6 H 37.0-80.0 % Lymphocytes (%) (Auto) 11.8 10.0-50.0 % Monocytes (%) (Auto) 3.2 0.0-12.0 % Eosinophils (%) (Auto) 0.1 0.0-7.0 % Basophils (%) (Auto) 0.3 0.0-2.0 % Neutrophils # (Auto) 8.1 1.6-8.6 10 ^3/uL Lymphocytes # (Auto) 1.1 0.4-5.4 10 ^3/uL Monocytes # (Auto) 0.3 0-1.3 10 ^3/uL Eosinophils # (Auto) 0 0-0.8 10 ^3/uL Basophils # (Auto) 0 0-0.2 10 ^3/uL Nucleated Red Blood Cells 0.0 % Sodium Level 141 136-145 mmol/L Potassium Level 3.6 3.5-5.1 mmol/L Chloride Level 107 98-107 mmol/L Carbon Dioxide Level 27 20-31 mmol/L Anion Gap 7 5-15 Blood Urea Nitrogen 9 9-23 mg/dL Creatinine 0.79 0.550-1.02 mg/dL Glomerular Filtration Rate Calc 106 >90 mL/min BUN/Creatinine Ratio 11.4 10.0-20.0 Serum Glucose 88 74-106 mg/dL Calcium Level 10.1 8.7-10.4 mg/dL Total Bilirubin 0.5 0.2-1.0 mg/dL Aspartate Amino Transferase (AST) 20 13-40 U/L Alanine Aminotransferase (ALT) 13 7-40 U/L Alkaline Phosphatase 61 46-116 U/L Total Protein 7.7 5.7-8.2 g/dL Albumin 4.9 H 3.2-4.8 g/dL Lipase 86 H 12-53 U/L Urine Color Colorless Yellow Urine Clarity Turbid H Clear Urine pH 7.5 5.0-9.0 Urine Specific [place] 1.017 1.001-1.035 Urine Protein Negative Negative Urine Ketones Negative Negative Urine Blood 3+ H Negative /uL Urine Nitrite Negative Negative Urine Bilirubin Negative Negative Urine Urobilinogen Normal Negative mg/dL Urine Leukocyte Esterase Negative Negative /uL Urine RBC 204 0 - 4 /hpf Urine Microscopic WBC 0-5 /HPF Urine Squamous Epithelial Cells Few <5 /hpf Urine Amorphous Crystals Few None Seen /hpf Urine Bacteria None seen None Seen /hpf Urine Glucose Normal Normal mg/dL X-Ray, Labs, Meds, VS Comment Imaging: X-rays and CT scans were reviewed and interpreted by this provider, imaging shows no fractures and no pathological disease. Pending radiology review. Laboratory: Labs reviewed and interpreted by this provider. No significant abnormalities noted. Patient has prior medical visits reviewed. Med reconciliation performed Vital signs reviewed Time of 1ST Reevaluation: 21:34 Reevaluation 1ST: Improved Patient Education/Counseling: Diagnosis, Treatment, Need For Follow Up (Patient advised to follow-up in the emergency room in the next 24 to 48 hours if symptoms do not improve. Advised follow-up with PCP in the next 3 to 5 days. P atient verbalized understanding. ) Family Education/Counseling: Diagnosis Departure 1 Departure Time of Disposition: 21:33 Impression: Primary Impression: Left flank pain Additional Impression: Kidney stone Disposition: HOME / SELF CARE / HOMELESS Condition: Fair Discharged With: Self Critical Care Note Critical Care Time?: No Stability Stability form required: No Heart Score Heart Score: Heart Score Response (Comments) Value History N/A 0 EKG N/A 0 Age N/A 0 Risk Factors N/A 0 Troponin N/A 0 Total 0 SATNAM GILL Jun 07, 2024 21:34
[2024-06-07 21:53] VITALS: BP 105/62; PULSE 76; RESP 14; TEMP 98.6; O2SAT 95
[2024-06-07] MEDS ORDERED: PERCOT PO (22:07)
== END 2024-06-07 22:12 | disposition home or self-care (01) ==
LOC: ER 19:17
DX: R10.32 Left lower quadrant pain (principal); Z88.6 Allergy status to analgesic agent; Z87.442 Personal history of urinary calculi; Z98.890 Other specified postprocedural states
CPT/HCPCS: 36415; 74176; 80053; 81001; 83690; 85025

== ENCOUNTER 2024-06-15 12:42 | Inpatient (IN) | payer SELFPAY, MEDICAID ==
[~2024-06-15] VITALS: Ht 142.2 cm; Wt 42.5 kg
[~2024-06-15 12:42] MED LIST changes: +PERCOT PO
[2024-06-15 13:33] LABS: Urine Bacteria None Seen /hpf (None Seen)
[2024-06-15 13:43] VITALS: PULSE 83; RESP 22; O2SAT 97
[2024-06-15 13:44] LABS: Basophils # (auto) 0.1 10 ^3/uL (0-0.2); Basophils % (auto) 0.6 % (0.0-2.0); Eosinophils # (auto) 0.1 10 ^3/uL (0-0.8); Eosinophils % (auto) 0.4 % (0.0-7.0); Hematocrit 40.8 % (36.0-46.0); Hemoglobin 13.7 g/dL (12.2-16.2); Lymphocytes # (auto) 3.4 10 ^3/uL (0.4-5.4); Lymphocytes % (auto) 25.6 % (10.0-50.0); Mean Corpuscular Hgb Conc. 33.6 g/dL (32.0-36.0); Mean Corpuscular Volume 95.3 fL (80.0-100.0); Monocytes # (auto) 0.9 10 ^3/uL (0-1.3); Monocytes % (auto) 6.6 % (0.0-12.0); Neutrophils % (auto) 66.8 % (37.0-80.0); Nucleated Red Blood Cells % 0.1 %; Platelet Count (auto) 298 10^3/uL (140-450); Red Blood Cells 4.29 10^6/uL (4.0-5.20); Red Cell Distribution Width 13.2 % (11.8-14.3); White Blood Cell 13.5 10^3/uL (4.4-10.8)
[2024-06-15 13:46] LABS: Urine Blood 1+ /uL (Negative); Urine Clarity Clear (Clear); Urine Color Colorless (Yellow); Urine Protein, UAD Negative (Negative); Urine Specific Gravity 1.005 (1.001-1.035); Urine Squamous Epithelial Cell FEW /hpf (<5); Urine Urobilinogen Normal (Negative); Urine WBC < 1 /HPF (0-5); Urine pH 6.5 (5.0-9.0)
[2024-06-15 14:03] LABS: Alanine Aminotransferase 17 U/L (7-40); Alkaline Phosphatase 62 U/L (46-116); Anion Gap 13 (5-15); Aspartate Aminotransferase 26 U/L (13-40); BUN/Creatinine Ratio 17.9 (10.0-20.0); Blood Urea Nitrogen 14 mg/dL (9-23); Carbon Dioxide 21 mmol/L (20-31); Chloride 106 mmol/L (98-107); Glucose 88 mg/dL (74-106); Potassium 3.6 mmol/L (3.5-5.1); Sodium 140 mmol/L (136-145)
[2024-06-15 14:04] LABS: Bilirubin, Total 0.5 mg/dL (0.2-1.0)
[2024-06-15] MEDS: fentaNYL CITRATE 100 MCG/2 ML VL IV ONE ×3 (14:07→23:47)
[2024-06-15] MEDS: ONDANSETRON HCL 4 MG/2 ML VIAL IV ONE (14:07)
[2024-06-15] MEDS: fentaNYL CITRATE 100 MCG/2 ML VL ONE (14:08)
[2024-06-15] MEDS: ONDANSETRON HCL 4 MG/2 ML VIAL ONE (14:08)
[2024-06-15 14:10] LABS: Albumin 5.5 g/dL (3.2-4.8); Calcium 10.6 mg/dL (8.7-10.4); Lipase 136 U/L (12-53); Total Protein 8.2 g/dL (5.7-8.2)
--- NOTE | 2024-06-15 14:13 | ED.PDOC ---
General HPI Comments 23y F who presents to the ED for chief complaint of L sided abdominal pain. 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 - pt states she came to [facility] 1 week prior for abdominal pain and she was dx with kidney stone and discharged with pain medications - pt has noted history of prior admissions to [facility] and was previously dx with kidney stones, ovarian cyst, sepsis, pyelonephritis and endometriosis Patient was seen by OB Gyne doctor recently for these complaints. PMH: kidney stones, ovarian cyst, sepsis, pyelonephritis and endometriosis PSH: appendectomy allergies: levofloxacin social history: denies tobacco use, denies ETOH use, endorses drug use(marijuana) HPI: Poor Historian. REVIEW OF SYSTEMS: CONSTITUTIONAL: Denies acute: fever, diaphoresis, chills, generalized weakness. HEAD: Denies acute: headache, photophobia Eyes: Denies acute: Double vision, vision loss, eye pain, eye discharge. EARS: Denies acute: tinnitus, hearing loss, ear discharge, ear pain, THROAT: Denies acute: sore throat, swelling, difficulty swallowing , pain with swallowing, change in voice. NECK: Denies acute: neck pain, neck swelling, stiff neck. HEART: Denies acute : chest pain, palpitations, LUNGS: Denies acute: SOB, wheezing, cough, hemoptysis ABDOMEN: Denies acute: diarrhea, melena , hematemesis, hematochezia SKIN: Denies acute: rash, redness, lesions, itchiness. EXTREMITIES: Denies acute: calf pain, numbness, tingling, weakness, denies pain in extremity. Denies acute: Low back pain. Neuro: Denies acute: focal neurological deficit, motor or sensory focal neurological deficit, tremors, seizure like activity, confusion, dizziness, change in mental status, loss of bowel or bladder function, cauda equina like symptoms. : Denies acute: dysuria, increase in urinary frequency. PSYCH: Denies acute: hallucination, suicidal ideation, homicidal ideation. FEMALE: Denies acute: abnormal vaginal bleeding, foul odor, unusual discharge. PHYSICAL EXAM: General: [id number] acute distress, awake and alert. Head: normocephalic, atraumatic. Neck: supple, trachea is midline, no swelling. Throat: Normal phonation. Eyes:, no erythema, no purulent discharge, no proptosis, no icterus. Heart: regular rate, regular rhythm, no significant murmur appreciated. Lungs: no apparent respiratory distress, Able to speak in full sentences. No wheezing, no rhonchi, no crackles. No stridors Clear to auscultation bilaterally. Abdomen: Left lower quadrant tender to palpation, non distended, soft, no guarding, no rebound, + bowel sounds. Neuro: Awake, Alert, oriented to name, self, situation, follows commands GCS=15. Speech is normal. Skin: no petechia, no purpura, no cyanosis, non-pale, not jaundice. Lower extremities: --no - Pitting edema no deformity, no focal swelling, no calf TTP. Makes eye contact. moves all four extremities. Face: no apparent facial droop. Left CVA tenderness to percussion Ambulating in the ED independently. ED COURSE: Chief Complaint: Abdominal Pain Time Seen by MD: 14:00 Primary Care Provider: DEVIN Miller notes: Nurses Notes, Allergies Allergies: Coded Allergies: Levofloxacin (Verified Allergy, Intermediate, 01/01/24) Home Meds Active Scripts Oxycodone W/ Acetaminophen (Percocet 5/325MG) 1 Tab Tb, 1 TAB PO BID PRN, #15 TAB Prov:SATNAM GILL 06/07/24 Cefdinir (Cefdinir) 300 Mg Cap, 300 MG PO BID for 10 Days, #20 CAP Prov:ALINE ASENCIO MD 01/06/24 Information Source: Patient Mode of Arrival: Ambulatory Past Medical History PAST MEDICAL HISTORY: Kidney Stones, UTI'S Surgical History: Denies all surgeries PRIVATE ADVISOR History: 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 Family History Family History: Reviewed,noncontributory to illness Social History Smoker: Non-Smoker Alcohol: Denies ETOH Use Drugs: Denies Drug Use Lives In: Home Was a procedure done? Was a procedure done?: No Differential Diagnosis Kidney stone (Female): Other (DDX include Diverticulitis, colitis, gastroenteritis, acute abdomen, SBO, enteritis, constipation, volvulus, appendicitis, Gallbladder disease, choledocolithiasis, ascending cholangitis, pancreatitis, intraAbdominal mass/neoplasm, hepatitis, UTI, pylonephritis, kidney stone, aneurysm, dissection, Inflammatory bowel disease, gastroparesis, ischemic bowel, ovarian torsion, ovarian cyst/mass, tubo-ovarian abscess, , ectopic , PID, STD.) Urinary Problem (Female): N/A X-Ray, Labs, Meds, VS Vital Signs Date Time Temp Pulse Resp B/P (MAP) Pulse Ox O2 Delivery O2 Flow Rate FiO2 06/15/24 20:16 74 16 99 Room Air* 0 21 06/15/24 20:15 97.5 74 16 102/59 (73) 99 97.5 06/15/24 18:48 112/51 06/15/24 18:45 98.4 63 18 112/51 (71) 98 98.4 06/15/24 14:07 116/76 06/15/24 13:57 83 22 116/76 (89) 100 06/15/24 13:43 83 22 97 Room Air* 0 21 06/15/24 13:18 98.6 98 24 127/79 (95) 100 98.6 Lab Test 06/15/24 15:39 06/15/24 13:33 06/15/24 13:20 Range/Units Lactic Acid Level 0.8 3.0 *H 0.4-2.0 mmol/L White Blood Count 13.5 H 4.4-10.8 10^3/uL Red Blood Count 4.29 4.0-5.20 10^6/uL Hemoglobin 13.7 12.2-16.2 g/dL Hematocrit 40.8 36.0-46.0 % Mean Corpuscular Volume 95.3 80.0-100.0 fL Mean Corpuscular Hemoglobin 32.0 28.0-32.0 pg Mean Corpuscular Hemoglobin Concent 33.6 32.0-36.0 g/dL Red Cell Distribution Width 13.2 11.8-14.3 % Platelet Count 298 140-450 10^3/uL Mean Platelet Volume 7.5 6.9-10.8 fL Neutrophils (%) (Auto) 66.8 37.0-80.0 % Lymphocytes (%) (Auto) 25.6 10.0-50.0 % Monocytes (%) (Auto) 6.6 0.0-12.0 % Eosinophils (%) (Auto) 0.4 0.0-7.0 % Basophils (%) (Auto) 0.6 0.0-2.0 % Neutrophils # (Auto) 9.0 H 1.6-8.6 10 ^3/uL Lymphocytes # (Auto) 3.4 0.4-5.4 10 ^3/uL Monocytes # (Auto) 0.9 0-1.3 10 ^3/uL Eosinophils # (Auto) 0.1 0-0.8 10 ^3/uL Basophils # (Auto) 0.1 0-0.2 10 ^3/uL Nucleated Red Blood Cells 0.1 % Sodium Level 140 136-145 mmol/L Potassium Level 3.6 3.5-5.1 mmol/L Chloride Level 106 98-107 mmol/L Carbon Dioxide Level 21 20-31 mmol/L Anion Gap 13 5-15 Blood Urea Nitrogen 14 9-23 mg/dL Creatinine 0.78 0.550-1.02 mg/dL Glomerular Filtration Rate Calc 108 >90 mL/min BUN/Creatinine Ratio 17.9 10.0-20.0 Serum Glucose 88 74-106 mg/dL Calcium Level 10.6 H 8.7-10.4 mg/dL Total Bilirubin 0.5 0.2-1.0 mg/dL Aspartate Amino Transferase (AST) 26 13-40 U/L Alanine Aminotransferase (ALT) 17 7-40 U/L Alkaline Phosphatase 62 46-116 U/L C-Reactive Protein High Sensitivity 0.06 <1.0 mg/dL Total Protein 8.2 5.7-8.2 g/dL Albumin 5.5 H 3.2-4.8 g/dL Lipase 136 H 12-53 U/L Urine Color Colorless Yellow Urine Clarity Clear Clear Urine pH 6.5 5.0-9.0 Urine Specific [place] 1.005 1.001-1.035 Urine Protein Negative Negative Urine Ketones Negative Negative Urine Blood 1+ H Negative /uL Urine Nitrite Negative Negative Urine Bilirubin Negative Negative Urine Urobilinogen Normal Negative mg/dL Urine Leukocyte Esterase Negative Negative /uL Urine RBC 3 0 - 4 /hpf Urine Microscopic WBC < 1 0-5 /HPF Urine Squamous Epithelial Cells Few <5 /hpf Urine Bacteria None seen None Seen /hpf Urine Glucose Normal Normal mg/dL Urine Test Negative Negative Current Medications Medications (Trade) Dose Ordered Sig/Mina Route Start Time Stop Time Status Last Admin Fentanyl Citrate 100 mcg ONCE ONCE IV 06/15/24 14:00 06/15/24 14:05 DC 06/15/24 14:07 Ondansetron HCl (Zofran) 4 mg ONCE ONCE IV 06/15/24 14:00 06/15/24 14:05 DC 06/15/24 14:07 Sodium Chloride 1,000 ml @ 1,000 mls/hr Q1H ONCE IV 06/15/24 14:15 06/15/24 15:14 DC 06/15/24 15:00 Piperacillin Sod/ Tazobactam Sod 100 ml @ 100 mls/hr ONCE ONCE IV 06/15/24 14:15 06/15/24 15:14 DC 06/15/24 15:33 Fentanyl Citrate 100 mcg ONCE ONCE IV 06/15/24 18:30 06/15/24 18:31 DC 06/15/24 18:48 [place] [address] Ph: [phone] DIAGNOSTIC IMAGING Diagnostic Imaging Report : [id number] Signed PATIENT: DALIA EM ACCT: [id number] UNIT: [id number] : 2000 LOC: ER ROOM / BED: / AGE / SEX: 23 / F ADM STATUS: REG ER SERVICE [id number] ORDERING PHYSICIAN: ANNABELLE PRADO DO PROCEDURE(s): PELUS - PELVIC REASON: L sided pelvic pain ORDER NUMBER(s): [id number], ACCESSION NUMBER(s): [id number] INDICATION: L sided pelvic pain TECHNIQUE: Multiple real-time grayscale transabdominal sonographic images along with color and duplex Doppler of the uterus and ovaries were obtained. (31 images) COMPARISON: US PELVIC on DOS: 01/12/24 FINDINGS: The uterus measures 6.1 x 3.5 x 3.9 cm. The endometrial stripe measures 0.1 cm. The right ovary measures 2.6 x 2.6 x 2.5 cm. Right ovarian volume is 8.8 cc there is a 7 x 7 x 10 mm anechoic lesion in the right ovary most likely a small follicle The left ovary measures 3.8 x 3 x 2.7 cm. Volume of the left ovary is 15.9 cc. There is a small anechoic lesion in the left ovary measuring 2.1 x 1.9 x 1.7 cm cm. Subsequent color and duplex Doppler interrogation of the ovaries demonstrated symmetric vascular flow to both ovaries, though this does not exclude the pos sibility of torsion due to the dual blood supply. IMPRESSION: 1. Uterus is unremarkable. 2. 2 cm follicle left ovary no free fluid 3. Normal Doppler imaging of both ovaries. ATED BY: JIMENEZ ALVARADO Jr., DO DICTATED DATE/TIME: 06/15/24 150 SIGNED BY: JIMENEZ ALVARADO Jr., SIGNED DATE/TIME: 06/15/24 150 CC: [place] [address] Ph: [phone] DIAGNOSTIC IMAGING Diagnostic Imaging Report : [id number] Signed PATIENT: DALIA EM ACCT: [id number] UNIT: [id number] : 2000 LOC: ER ROOM / BED: / AGE / SEX: 23 / F ADM STATUS: REG ER SERVICE [id number] ORDERING PHYSICIAN: ANNABELLE PRADO DO PROCEDURE(s): ABPL - CT AB PEL WO CON-NO ORAL OR IV REASON: L sided pain, h/o kid stone ORDER NUMBER(s): [id number], ACCESSION NUMBER(s): [id number] Exam: CT CT AB PEL WO CON-NO ORAL OR IV History: L sided pain, h/o kid stone Comparison Study: CT CT AB PEL WO CON-NO ORAL OR IV on DOS: 06/07/24, CT CT AB PEL WO CON-NO ORAL OR IV on DOS: 01/01/24, CT ABD PELVIS WO CONTRAST on DOS: 05/09/20 Technique: Multidetector spiral CT of the abdomen and pelvis was performed from lung bases to pubic symphysis. Imaging was performed without IV contrast. Axial, coronal and sagittal multiplanar reformats were obtained from the axial data set by the technologist. Radiation dose : Abdomen/Pelvis: CTDIvol 5 mGy, DLP 210 mGy*cm. Findings: Evaluation of solid organs is limited due to lack of intravenous contrast use. Lung Bases: No acute or significant lung base finding. Normal heart size. No pleural or pericardial effusion. Liver: The liver is normal in size. No focal lesions. Gallbladder and biliary Tree: Unremarkable Spleen: Unremarkable Pancreas: The pancreas is grossly normal in appearance. Adrenal Glands: Unremarkable Kidneys: Punctate nonobstructive left upper pole renal calculus. No hydronephrosis. Bladder: Grossly unremarkable for degree of distention. Bowel: The stomach is grossly normal in appearance. Small bowel and colon are normal in caliber and distribution. The appendix is not visualized; however, no secondary findings of acute appendicitis identified. Ascites: Small amount of free fluid in the pelvis is likely physiologic. Lymphadenopathy: No mesenteric, retroperitoneal or periportal lymphadenopathy. Abdominal wall and Mesentery: Unremarkable. Vasculature: The visualized abdominal aorta is normal in size and caliber. E valuation of abdominal and pelvic vessels is limited due to lack of intravenous contrast. Pelvic Organs: Left ovarian cysts measuring up to 18 mm. Musculoskeletal: No aggressive focal bony lesions, acute fractures or dislocation. IMPRESSION: 1. Punctate nonobstructive left upper pole renal calculus. No hydronephrosis. Free fluid in the pelvis is likely physiologic. Left ovarian cyst. Radiation optimization: All CT scans at this facility use at least one of these dose optimization techniques: Automated exposure control mA and/or kV adjustment per patient size (includes targeted exams where dose is matched to clinical indication) or iterative reconstruction. HS:Y ATED BY: LARRY AMAYA MD DICTATED DATE/TIME: 06/15/24 145 SIGNED BY: LARRY AMAYA MD SIGNED DATE/TIME: 06/15/24 145 CC: Time of 1ST Reevaluation: 20:30 Reevaluation 1ST: Improved Patient Education/Counseling: Diagnosis, Treatment Family Education/Counseling: No Family Present Comments Patient presented with the above HPI.--abdominal pain----workup was initiated. patient was found with the above mentioned diagnosis. the following medications were ordered: please refer to order lists of meds and tests obtained by myself Dr. Prado. Patient ED course and VS have been stabilized. Patient has been reassessed in the ED and remained in a stable condition. Pertinent incidental findings were discussed with the patient and/or family. Patient/family voices understanding and is agreeable with plan. Patient has been observed in the ED adequate length of time to insure improvement/stability. Escalation of care considered: Consideration of escalation to observation or admission Patient was ADMITTED to the medicine team for further evaluation and treatment of their presentation. All the reports of any imaging studies that were ordered by myself were reviewed by myself. Departure 1 Departure Time of Disposition: 16:45 Impression: Primary Impression: Acute pancreatitis Disposition: 09 ADMITTED INPATIENT Admit to: Tele Condition: Guarded Discharged With: Self Critical Care Note Critical Care Time?: No I personally scribed for ANNABELLE PRADO DO ([email or web address]) on 06/15/24 at 14:13. Electronically submitted by Sushil Floyd ([email or web address]). ANNABELLE PRADO DO Jun 15, 2024 14:13
--- NOTE | 2024-06-15 14:56 | [facility]H ---
Exam: CT CT AB PEL WO CON-NO ORAL OR IV History: L sided pain, h/o kid stone Comparison Study: CT CT AB PEL WO CON-NO ORAL OR IV on DOS: 06/07/24, CT CT AB PEL WO CON-NO ORAL OR IV on DOS: 01/01/24, CT ABD PELVIS WO CONTRAST on DOS: 05/09/20 Technique: Multidetector spiral CT of the abdomen and pelvis was performed from lung bases to pubic symphysis. Imaging was performed without IV contrast. Axial, coronal and sagittal multiplanar reform ats were obtained from the axial data set by the technologist. Radiation dose : Abdomen/Pelvis: CTDIvol 5 mGy, DLP 210 mGy*cm. Findings: Evaluation of solid organs is limited due to lack of intravenous contrast use. Lung Bases: No acute or significant lung base finding. Normal heart size. No pleural or pericardial effusion. Liver: The liver is normal in size. No focal lesions. Gallbladder and biliary Tree: Unremarkable Spleen: Unremarkable Pancreas: The pancreas is grossly normal in appearance. Adrenal Glands: Unremarkable Kidneys: Punctate nonobstructive left upper pole renal calculus. No hydronephrosis. Bladder: Grossly unremarkable for degree of distention. Bowel: The stomach is grossly normal in appearance. Small bowel and colon are normal in caliber and d istribution. The appendix is not visualized; however, no secondary findings of acute appendicitis maci ntified. Ascites: Small amount of free fluid in the pelvis is likely physiologic. Lymphadenopathy: No mesenteric, retroperitoneal or periportal lymphadenopathy. Abdominal wall and Mesentery: Unremarkable. Vasculature: The visualized abdominal aorta is normal in size and caliber. Evaluation of abdominal a nd pelvic vessels is limited due to lack of intravenous contrast. Pelvic Organs: Left ovarian cysts measuring up to 18 mm. Musculoskeletal: No aggressive focal bony lesions, acute fractures or dislocation. IMPRESSION: 1. Punctate nonobstructive left upper pole renal calculus. No hydronephrosis. Free fluid in the pelvi s is likely physiologic. Left ovarian cyst. Radiation optimization: All CT scans at this facility use at least one of these dose optimization gabriel hniques: Automated exposure control mA and/or kV adjustment per patient size (includes targeted exams where dose is matched to clinical indication) or iterative reconstruction. HS:Y
[2024-06-15] MEDS: SODIUM CHLORIDE 0.9% 1,000 ML IV ONE (15:00)
--- NOTE | 2024-06-15 15:09 | [facility]H ---
INDICATION: L sided pelvic pain TECHNIQUE: Multiple real-time grayscale transabdominal sonographic images along with color and duplex Doppler of the uterus and ovaries were obtained. (31 images) COMPARISON: US PELVIC on DOS: 01/12/24 FINDINGS: The uterus measures 6.1 x 3.5 x 3.9 cm. The endometrial stripe measures 0.1 cm. The right ovary measures 2.6 x 2.6 x 2.5 cm. Right ovarian volume is 8.8 cc there is a 7 x 7 x 10 mm anechoic lesion in the right ovary most likely a small follicle The left ovary measures 3.8 x 3 x 2.7 cm. Volume of the left ovary is 15.9 cc. There is a small anech oic lesion in the left ovary measuring 2.1 x 1.9 x 1.7 cm cm. Subsequent color and duplex Doppler interrogation of the ovaries demonstrated symmetric vascular flow to both ovaries, though this does not exclude the possibility of torsion due to the dual blood suppl y. IMPRESSION: 1. Uterus is unremarkable. 2. 2 cm follicle left ovary no free fluid 3. Normal Doppler imaging of both ovaries.
[2024-06-15] MEDS: PIPERACILLIN-TAZOB 3.375GM 100 ML IV ONE (15:33)
[2024-06-15 15:44] LABS: CRP High Sensitivity 0.06 mg/dL (<1.0)
[2024-06-15 20:16] VITALS: PULSE 74; RESP 16; O2SAT 99
[2024-06-15] MEDS ORDERED: ACETAMINOPHEN 325 MG TAB PO PRN (21:45)
[2024-06-15] MEDS ORDERED: DOCUSATE SOD 100 MG CAP PO PRN (21:45)
--- NOTE | 2024-06-15 22:43 | DVHHP2 ---
History of Present Illness Reason for Visit: Acute pancreatitis History of Present Illness The patient is a 23-year-old female with past medical history of ovarian cysts, kidney stones, sepsis, pyelonephrosis, UTIs, and endometriosis who presented to [facility] ED with complaint of abdominal pain. Patient reports sy mptoms progressively get worse with left lower quadrant abdominal pain, radiating to her back for the past two weeks, getting worse today that prompted this visit. Patient reports she had surgery for granulation tumor recently and since then she has been having pain around suggest site. Patient was seen and evaluated in the ED, laboratory data shows WBC 13.5, platelets 298, sodium 140, potassium 3.5, BUN 14, creatinine 0.78, GFR 108, glucose 88, lactic acid 3.0 trending down to 0.8, albumin 5.5, lipase 136, calcium 10.6. Abdomen/pelvis CT revealing punctate nonobstructive left upper pole renal calculus, no hydronephrosis, free fluid in the pelvis is likely physiologic, left ovarian cysts. Patient was started on IV antibiotic regimen Zosyn, please see medication orders section in the computer. On my assessment, patient denies chest pain, no headache, no dizziness, no shortness of breaths, no abdominal pain at this moment, no nausea, no vomiting, no fever, no chills. Patient was admitted for further evaluation and medical management. Past Medical History Kidney stones, ovarian cyst, sepsis, pyelonephritis, UTI'S, Endometriosis Past Surgical History Appendectomy, granulation tumor surgery Family History Reviewed, noncontributory to the management of this case. Past Social History Patient lives at home, denies tobacco use, denies ETOH use, endorses drug use(marijuana) Review of Systems Constitutional: No: Fever, Chills, Sweats, Weakness, Malaise, Other Eyes: No: Pain, Vision change, Conjunctivae inflammation, Eyelid inflammation, Other, Redness ENT: No: Ear pain, Ear discharge, Nose pain, Nose discharge, Nose congestion, Mouth pain, Mouth swelling, Throat pain, Throat swelling, Other Respiratory: No: Cough, Dry, Shortness of breath, SOB with excertion, Wheezing, Hemoptysis, Pleuritic Pain, Sputum, Wheezing, Other Cardiovascular: No: Chest Pain, Palpitations, Orthopnea, Paroxysmal Noc. Dyspnea, Edema, Lt Headedness, Other Gastrointestinal: Abdominal Pain; No: Nausea, Vomiting, Diarrhea, Constipation, Melena, Hematochezia, Other Genitourinary: No Dysuria, No Frequency, No Incontinence, No Hematuria, No Retention, No Other Musculoskeletal: No: other, neck pain, shoulder pain, arm pain, back pain, hand pain, leg pain, foot pain Skin: No: Rash, Lesions, Jaundice, Bruising, Other Neurological: No: Weakness, Numbness, Incoordination, Change in speech, Confusion, Seizures, Other Allergies: Coded Allergies: Levofloxacin (Verified Allergy, Intermediate, 01/01/24) Medications Current Medications Medications Dose Ordered Sig/Mina Route Start Time Stop Time Status Last Admin Dose Admin Ceftriaxone Sodium 50 ml @ 100 mls/hr DAILY@09 IV 06/16/24 09:00 Sodium Chloride 1,000 ml @ 100 mls/hr Q10H IV 06/15/24 21:45 Acetaminophen/ Hydrocodone Bitart 1 tab Q4HP PRN PO 06/15/24 21:45 Ondansetron HCl 4 mg Q4HP PRN IV 06/15/24 21:45 Docusate Sodium 100 mg BIDPRN PRN PO 06/15/24 21:45 Acetaminophen 650 mg Q6HP PRN PO 06/15/24 21:45 Exam Vital Signs Vital Signs Date Time Temp Pulse Resp B/P (MAP) Pulse Ox O2 Delivery O2 Flow Rate FiO2 06/15/24 20:16 74 16 99 Room Air* 0 21 06/15/24 20:15 97.5 102/59 (73) 97.5 General Appearance: Alert, Oriented X3, Cooperative, No acute distress HEENT: Atraumatic, PERRLA, EOMI, Mucous membr. moist/pink Respiratory: Clear to auscultation, Normal air movement Cardiovascular: Regular rate, Normal S1, Normal S2, No murmurs Abdominal: Normal bowel sounds, Soft, No hepatospenomegaly, No masses, Other (Reports tenderness) Extremities: No clubbing, No cyanosis, No edema, Normal pulses, No tenderness/swelling Skin: No rashes, No breakdown, No significant lesion Neuro: Normal gait, Normal speech, Strength at 5/5 X4 ext, Normal tone, Sensation intact, Cranial nerves 3-12 NL, Reflexes 2+ Psych/Mental Status: Mental status NL, Mood NL Labs/Xrays Labs Test 06/15/24 15:39 06/15/24 13:33 06/15/24 13:20 Range/Units Lactic Acid Level 0.8 0.4-2.0 mmol/L White Blood Count 13.5 H 4.4-10.8 10^3/uL Red Blood Count 4.29 4.0-5.20 10^6/uL Hemoglobin 13.7 12.2-16.2 g/dL Hematocrit 40.8 36.0-46.0 % Mean Corpuscular Volume 95.3 80.0-100.0 fL Mean Corpuscular Hemoglobin 32.0 28.0-32.0 pg Mean Corpuscular Hemoglobin Concent 33.6 32.0-36.0 g/dL Red Cell Distribution Width 13.2 11.8-14.3 % Platelet Count 298 140-450 10^3/uL Mean Platelet Volume 7.5 6.9-10.8 fL Neutrophils (%) (Auto) 66.8 37.0-80.0 % Lymphocytes (%) (Auto) 25.6 10.0-50.0 % Monocytes (%) (Auto) 6.6 0.0-12.0 % Eosinophils (%) (Auto) 0.4 0.0-7.0 % Basophils (%) (Auto) 0.6 0.0-2.0 % Neutrophils # (Auto) 9.0 H 1.6-8.6 10 ^3/uL Lymphocytes # (Auto) 3.4 0.4-5.4 10 ^3/uL Monocytes # (Auto) 0.9 0-1.3 10 ^3/uL Eosinophils # (Auto) 0.1 0-0.8 10 ^3/uL Basophils # (Auto) 0.1 0-0.2 10 ^3/uL Nucleated Red Blood Cells 0.1 % Sodium Level 140 136-145 mmol/L Potassium Level 3.6 3.5-5.1 mmol/L Chloride Level 106 98-107 mmol/L Carbon Dioxide Level 21 20-31 mmol/L Anion Gap 13 5-15 Blood Urea Nitrogen 14 9-23 mg/dL Creatinine 0.78 0.550-1.02 mg/dL Glomerular Filtration Rate Calc 108 >90 mL/min BUN/Creatinine Ratio 17.9 10.0-20.0 Serum Glucose 88 74-106 mg/dL Calcium Level 10.6 H 8.7-10.4 mg/dL Total Bilirubin 0.5 0.2-1.0 mg/dL Aspartate Amino Transferase (AST) 26 13-40 U/L Alanine Aminotransferase (ALT) 17 7-40 U/L Alkaline Phosphatase 62 46-116 U/L C-Reactive Protein High Sensitivity 0.06 <1.0 mg/dL Total Protein 8.2 5.7-8.2 g/dL Albumin 5.5 H 3.2-4.8 g/dL Lipase 136 H 12-53 U/L Urine Color Colorless Yellow Urine Clarity Clear Clear Urine pH 6.5 5.0-9.0 Urine Specific [place] 1.005 1.001-1.035 Urine Protein Negative Negative Urine Ketones Negative Negative Urine Blood 1+ H Negative /uL Urine Nitrite Negative Negative Urine Bilirubin Negative Negative Urine Urobilinogen Normal Negative mg/dL Urine Leukocyte Esterase Negative Negative /uL Urine RBC 3 0 - 4 /hpf Urine Microscopic WBC < 1 0-5 /HPF Urine Squamous Epithelial Cells Few <5 /hpf Urine Bacteria None seen None Seen /hpf Urine Glucose Normal Normal mg/dL Urine Test Negative Negative PATIENT: DALIA EMACCT: [id number] UNIT: [id number] : 2000 LOC: ER ROOM / BED: / AGE / SEX: 23 / F ADM STATUS: REG ER SERVICE [id number] ORDERING PHYSICIAN: ANNABELLE PRADO DO PROCEDURE(s): ABPL - CT AB PEL WO CON-NO ORAL OR IV REASON: L sided pain, h/o kid stone ORDER NUMBER(s): [id number], ACCESSION NUMBER(s): [id number] Exam: CT CT AB PEL WO CON-NO ORAL OR IV History: L sided pain, h/o kid stone Comparison Study: CT CT AB PEL WO CON-NO ORAL OR IV on DOS: 06/07/24, CT CT AB PEL WO CON-NO ORAL OR IV on DOS: 01/01/24, CT ABD PELVIS WO CONTRAST on DOS: 05/09/20 Technique: Multidetector spiral CT of the abdomen and pelvis was performed from lung bases to pubic symphysis. Imaging was performed without IV contrast. Axial, coronal and sagittal multiplanar reformats were obtained from the axial data set by the technologist. Radiation dose: Abdomen/Pelvis: CTDIvol 5 mGy, DLP 210 mGy*cm. Findings: Evaluation of solid organs is limited due to lack of intravenous contrast use. Lung Bases: No acute or significant lung base finding. Normal heart size. No pleural or pericardial effusion. Liver: The liver is normal in size. No focal lesions. Gallbladder and biliary Tree: Unremarkable Spleen: Unremarkable Pancreas: The pancreas is grossly normal in appearance. Adrenal Glands: Unremarkable Kidneys: Punctate nonobstructive left upper pole renal calculus. No hydronephrosis. Bladder: Grossly unremarkable for degree of distention. Bowel: The stomach is grossly normal in appearance. Small bowel and colon are normal in caliber and distribution. The appendix is not visualized; however, no secondary findings of acute appendicitis identified. Ascites: Small amount of free fluid in the pelvis is likely physiologic. Lymphadenopathy: No mesenteric, retroperitoneal or periportal lymphadenopathy. Abdominal wall and Mesentery: Unremarkable. Vasculature: The visualized abdominal aorta is normal in size and caliber. Evaluation of abdominal and pelvic vessels is limited due to lack of intravenous contrast. Pelvic Organs: Left ovarian cysts measuring up to 18 mm. Musculoskeletal: No aggressive focal bony lesions, acute fractures or dislocation. IMPRESSION: 1. Punctate nonobstructive left upper pole renal calculus. No hydronephrosis. Fr ee fluid in the pelvis is likely physiologic. Left ovarian cyst. ORDERING PHYSICIAN: ANNABELLE PRADO DO PROCEDURE(s): PELUS - PELVIC REASON: L sided pelvic pain ORDER NUMBER(s): [id number], ACCESSION NUMBER(s): [id number] INDICATION: L sided pelvic pain TECHNIQUE: Multiple real-time grayscale transabdominal sonographic images along with color and duplex Doppler of the uterus and ovaries were obtained.(31 images) COMPARISON: US PELVIC on DOS: 01/12/24 FINDINGS: The uterus measures 6.1 x 3.5 x 3.9 cm. The endometrial stripe measures 0.1 cm. The right ovary measures 2.6 x 2.6 x 2.5 cm. Right ovarian volume is 8.8 cc there is a 7 x 7 x 10 mm anechoic lesion in the right ovary most likely a small follicle The left ovary measures 3.8 x 3 x 2.7 cm. Volume of the left ovary is 15.9 cc. There is a small anechoic lesion in the left ovary measuring 2.1 x 1.9 x 1.7 cm cm. Subsequent color and duplex Doppler interrogation of the ovaries demonstrated symmetric vascular flow to both ovaries, though this does not exclude the possibility of torsion due to the dual blood supply. IMPRESSION: 1. Uterus is unremarkable. 2. 2 cm follicle left ovary no free fluid 3. Normal Doppler imaging of both ovaries. Assessment/Plan Assessment/Plan Acute pancreatitis Acute abdominal pain Leukocytosis, unspecified Elevated lactic acid level Plan 1. Admit to telemetry unit 2. Breathing treatment 3. Pain control management 4. IV antibiotic management 5. Management of fluids and electrolytes 6. Consultation for hospitalist 7. Diagnostic test abdomen/pelvis CT 8. DVT prophylaxis-on SCDs 9. Repeat labs CBC, CMP in a.m. 10. Home medication reviewed and reconciled 11. Continue with current medical management 12. Treatment plan discussed with patient and RN. Patient verbalized understanding. Plan discussed with: Patient, Other (RN) My Orders Orders - DOROTHY VILLEDA DNP Procedure Category Date Status Time Ceftriaxone 1gm/50ml PHA 06/16/24 In Process D5w (Rocephin) 09:00 Sod Chl 0.45% (Sodium PHA 06/15/24 In Process Chloride 0.45% Via 21:45 Allergies KIMBERLY 06/15/24 In Process 21:41 Code Status CODE 06/15/24 Transmitted 21:41 Oxygen Per Hour RT 06/15/24 Transmitted 21:41 Hydrocodone-Acet PHA 06/15/24 In Process 5/325mg Tab (Blakely 21:45 Ondansetron Hcl PHA 06/15/24 In Process (Zofran) 21:45 Docusate Sodium PHA 06/15/24 In Process Capsule (Colace 21:45 Complete Blood Count LAB 06/16/24 Verified 04:00 Comprehensive LAB 06/16/24 Verified Metabolic Panel 04:00 Condition: Serious KIMBERLY 06/15/24 In Process 21:41 Acetaminophen Tablet PHA 06/15/24 In Process (Tylenol Tablet) 21:45 Clear Liq Diet DIET 06/16/24 Transmitted Breakfast Bedrest With Bathroom KIMBERLY 06/15/24 In Process Privileg 21:41 Sequential KIMBERLY 06/15/24 In Process Compression Device Admit ADMIT 06/15/24 Verified 22:41 Nitroglycerin PHA 06/15/24 Verified Sublingual (Ntrostat 22:45 Morphine Sulfate PHA 06/15/24 Verified Injection 22:45 Notify Md Of Changes KIMBERLY 06/15/24 Verified From Base 22:[address] [employer] [address] KIMBERLY 06/15/24 Verified 24 Hours 22:41 Emergency Dysrhythmia [facility] 06/15/24 Verified Protocol 22:41 Oxygen By Nasal RT 06/15/24 Verified Cannula 22:41 Problem List: (1) Acute pancreatitis (2) Acute abdominal pain (3) Leukocytosis, unspecified (4) Elevated lactic acid level Date of Service: Jun 15, 2024 Billing Provider: DOROTHY VILLEDA DNP Common Visit Codes: [id number] INP/OBS CARE (HIGH) DOROTHY VILLEDA DNP Jun 15, 2024 22:43
[2024-06-15] MEDS ORDERED: MORPHINE SULFATE INJ 2 MG/ml SYRG IV PRN (22:45)
[2024-06-15] MEDS ORDERED: NITROGLYCERIN 0.4 MG SL TAB SL PRN (22:45)
[2024-06-15] MEDS: HYDROcodone-ACET 5/325MG TAB PO PRN (22:55)
[2024-06-15] MEDS: ONDANSETRON HCL 4 MG/2 ML VIAL IV PRN (23:35)
[2024-06-16] VITALS (7 sets, daily range): BP systolic 98–117; BP diastolic 43–68; PULSE 49–77; RESP 17–20; TEMP 97.5–98.3; O2SAT 97–100
[2024-06-16] MEDS ORDERED: MORPHINE SULFATE 4 MG/ML SYR/VIAL IV PRN
[2024-06-16] MEDS ORDERED: PRED20TA2 PO (00:54)
[2024-06-16] MEDS ORDERED: CEPH500C PO (00:54)
[2024-06-16 06:04] LABS: Basophils # (auto) 0 10 ^3/uL (0-0.2); Basophils % (auto) 0.4 % (0.0-2.0); Eosinophils # (auto) 0.1 10 ^3/uL (0-0.8); Eosinophils % (auto) 1.2 % (0.0-7.0); Hematocrit 32.3 % (36.0-46.0); Hemoglobin 11.2 g/dL (12.2-16.2); Lymphocytes # (auto) 3.7 10 ^3/uL (0.4-5.4); Lymphocytes % (auto) 48.9 % (10.0-50.0); Mean Corpuscular Hemoglobin 33.3 pg (28.0-32.0); Mean Corpuscular Hgb Conc. 34.8 g/dL (32.0-36.0); Mean Corpuscular Volume 95.8 fL (80.0-100.0); Monocytes # (auto) 0.4 10 ^3/uL (0-1.3); Monocytes % (auto) 5.6 % (0.0-12.0); Neutrophils # (auto) 3.4 10 ^3/uL (1.6-8.6); Neutrophils % (auto) 43.9 % (37.0-80.0); Platelet Count (auto) 210 10^3/uL (140-450); Red Blood Cells 3.37 10^6/uL (4.0-5.20); Red Cell Distribution Width 13.6 % (11.8-14.3); White Blood Cell 7.7 10^3/uL (4.4-10.8)
[2024-06-16 06:31] LABS: Potassium 4.1 mmol/L (3.5-5.1); Sodium 142 mmol/L (136-145)
[2024-06-16 06:38] LABS: Carbon Dioxide 23 mmol/L (20-31)
[2024-06-16 06:39] LABS: Calcium 9.3 mg/dL (8.7-10.4)
[2024-06-16 06:43] LABS: Alkaline Phosphatase 46 U/L (46-116); BUN/Creatinine Ratio 13.7 (10.0-20.0); Blood Urea Nitrogen 10 mg/dL (9-23); Glucose 86 mg/dL (74-106)
[2024-06-16 06:44] LABS: Anion Gap 9 (5-15); Chloride 110 mmol/L (98-107)
[2024-06-16 06:45] LABS: Alanine Aminotransferase 12 U/L (7-40); Aspartate Aminotransferase 15 U/L (13-40)
[2024-06-16] MEDS: SOD CHL 0.45% 1,000 ML IV SCH (06:45)
[2024-06-16 06:46] LABS: Bilirubin, Total 0.3 mg/dL (0.2-1.0)
[2024-06-16 07:50] LABS: Triglycerides 85 mg/dL (< 150)
[2024-06-16 07:51] LABS: LDL Cholesterol 79 mg/dL (< 100); Magnesium 2.1 mg/dL (1.6-2.6)
[2024-06-16 07:52] LABS: Blood Alcohol < 3.0 mg/dL (<10); Cholesterol 141 mg/dL (< 200); HDL Cholesterol 56 mg/dL (40-59)
[2024-06-16 07:56] LABS: INR 1.07 (0.9-1.15); Partial Thromboplastin Time 26.1 SEC (24.5-34.5); Prothrombin Time 11.3 sec (9.3-11.8)
[2024-06-16] MEDS: metroNIDAZOLE 500MG/100ML 100 ML IV ONE (08:56)
[2024-06-16] MEDS: SODIUM CHLORIDE 0.9% 500 ML IV ONE (10:00)
[2024-06-16] MEDS: cefTRIAXone 1GM/50ML D5W 50 ML IV SCH (10:35)
--- NOTE | 2024-06-16 10:47 | DVHPNRES ---
Progress Note Date Seen: Jun 16, 2024 Resident Creating Document: ELDA DE LOS SANTOS RESIDENT Medical Necessity Reason Pt with a Central, PICC or Fol: No Subjective Review of Systems Ms. Lloyd is a 23-year-old student past medical history of left-sided kidney stones since December last year, UTI secondary to e coli and strep, questionable birthmark on right face who presented to the ER with a chief complaint of left flank pain radiating to the back and groin past 2 weeks. She reports she has been on a lot of antibiotics recently, she stops taking antibiotics once she feels better, reports worsening left flank pain which is sharp associated with feeling of cold and hot, sweating, chills with no fever, nausea or vomiting. She reports pain 10/10. Reports altered bowel movements because of the pain and also reports loss of appetite. Came to the ER on 06/07 when imaging showed to 2 X 4 mm left kidney stone. She smokes marijuana. On arrival, patient was vitally stable. WBC was 13.5 which downtrended to 7. Patient reported intractable pain. Lactic acidosis was 3 on arrival. Lipase elevated at 136. CT showed small free fluid which is physiological. 18 mm ovarian cyst. Punctate nonobstructive left upper pole calculus. Patient refused abdominal ultrasound to rule out hydronephrosis and refused physical examination at this time due to pain. Past medical/surgical history: See above Social history: Smokes marijuana, patient is a student, denies drinking or illicit drug use Patient seen and examined at the bedside. Objective vital signs Vital Sign Date Time Temp Pulse Resp B/P (MAP) Pulse Ox O2 Delivery O2 Flow Rate FiO2 06/16/24 09:00 97.5 49 18 98/48 (65) 97 97.5 06/16/24 00:30 Nasal Cannula* 2 28 Total Intake and Output 06/15/24 06/15/24 06/16/24 15:00 23:00 07:00 Intake Total 1100 ml 500 ml Balance 1100 ml 500 ml medications Current Medications Medications Dose Ordered Sig/Mina Route Start Time Stop Time Status Last Admin Dose Admin Ceftriaxone Sodium 50 ml @ 100 mls/hr DAILY@09 IV 06/16/24 09:00 Acetaminophen/ Hydrocodone Bitart 1 tab Q4HP PRN PO 06/15/24 21:45 06/15/24 22:55 1 TAB Ondansetron HCl 4 mg Q4HP PRN IV 06/15/24 21:45 06/15/24 23:35 4 MG Docusate Sodium 100 mg BIDPRN PRN PO 06/15/24 21:45 Acetaminophen 650 mg Q6HP PRN PO 06/15/24 21:45 Nitroglycerin 0.4 mg Q5MINP PRN SL 06/15/24 22:45 Morphine Sulfate 2 mg Q30M PRN IV 06/15/24 22:45 Morphine Sulfate 4 mg Q4HPRN PRN IV 06/16/24 00:00 Metronidazole 100 ml @ 100 mls/hr Q8HR IV 06/16/24 14:00 Examination Patient lying in bed, in no acute distress General: Well-built, afebrile, palor, mucosae are moist Cardiovascular: Regular S1 and S2. No murmurs, gallops or rubs. No JVD elevation. No pedal edema Respiratory: Normal B/L air entry on room air. Clear lung sounds on auscultation Abdomen: Soft, nontender, nondistended, normoactive bowel sounds, no rebound tenderness, no organomegaly, no masses Genitourinary: Deferred MSK/skin: Mobilizes 4 limbs. Skin is dry and warm Neurological: No motor, no sensitive deficits, normal speech. Pupils are isocoric and reactive. Psych/Mental Status: A/Ox3 laboratory and microbiology Laboratory Tests 06/16/24 05:39 Test 06/16/24 05:39 Range/Units Serum Glucose 86 74-106 mg/dL Labs and/or images reviewed: Labs reviewed by me, Image(s) reviewed by me Problem List/Assessment/Plan Problem List/Assessment/Plan Possible SIRS secondary to pancreatitis Probable acute pancreatitis left nephrolithiasis Lactic acidosis-resolved Intractable pain secondary to above CT scan completed, showed unctate nonobstructive left upper pole renal calculus. No hydronephrosis. Free fluid in the pelvis is likely physiologic. Left ovarian cyst. Continue IV metronidazole starting 06/16, continue IV ceftriaxone starting 06/15 IV Toradol for moderate pain, Tylenol for mild pain, [place] for severe pain Tamsulosin 0.4 mg daily Blood culture pending Clear liquid diet Patient refused abdominal ultrasound to rule out gallstones, plasma alcohol within normal limits, triglyceride WNL Left ovarian cyst Pelvic ultrasound showed follicular cyst Vitamin-D deficiency Supplemented Lovenox 40 mg sc daily Plan discussed with the patient in which all questions have been answered Goals of care discussed with patient for more than 20 minutes, full code status Case discussed with Dr. Harding Plan discussed with: Patient My Orders My Orders Orders - ELDA DE LOS SANTOS Procedure Category Date Status Time Drug Screen LAB 06/16/24 Logged 07:27 Metronidazole PHA 06/16/24 In Process 500mg/100ml (Flagyl 14:00 Sodium Chloride 0.9% PHA 06/16/24 In Process 10:00 Date of Service: Jun 16, 2024 Billing Provider: ABDELRAHMAN HARDING DO Common Visit Codes: [id number] INP/OBS CARE(HIGH) ELDA DE LOS SANTOS Jun 16, 2024 10:47 ABDELRAHMAN HARDING DO Jun 18, 2024 18:19
[2024-06-16] MEDS: KETOROLAC TROMETH 30 MG/ML 1ML VIAL IV ONE (10:50)
[2024-06-16] MEDS: ACETAMINOPHEN 325 MG TAB PO ONE (10:51)
[2024-06-16] MEDS ORDERED: KETOROLAC TROMETH 30 MG/ML 1ML VIAL IV PRN (12:00)
[2024-06-16] MEDS: ERGOCALCIFEROL 50,000 UNIT(1.25MG) CAP PO SCH (12:24)
[2024-06-16] MEDS: CYANOCOBALAMIN (B-12) 1000 MCG/1 ML VIAL IM ONE (12:25)
[2024-06-16] MEDS: SODIUM CHLORIDE 0.9% 1,000 ML IV SCH (14:30)
[2024-06-16] MEDS: metroNIDAZOLE 500MG/100ML 100 ML IV SCH (14:55)
[2024-06-16 15:45] LABS: Erythrocyte Sedimentation Rate 8 mm/hr (0-20)
[2024-06-16] MEDS: MORPHINE SULFATE INJ 2 MG/ml SYRG IV PRN (17:07)
[2024-06-16] MEDS: TAMSULOSIN HYDROCHLORIDE 0.4 MG CAP PO SCH (18:09)
[2024-06-16] MEDS: PANTOPRAZOLE 40 MG/10 ML VIAL INJ IV ONE (18:09)
--- NOTE | 2024-06-16 19:50 | DVH ---
INDICATION: r/o hydronephrosis, r/o galsstones pancreatitis TECHNIQUE: Multiple real-time sonographic images of the abdomen were obtained. COMPARISON: None FINDINGS: The liver is homogenous in echogenicity. The liver measures 12.72 cm. No intrahepatic bili chu ductal dilatation is noted. The gallbladder wall measures 0.18 cm and is unremarkable. No gallstones or sludge is seen. The co mmon duct measures 0.39 cm and is unremarkable. No pericholecystic fluid is noted. The right kidney measures 10.55 cm. No hydronephrosis. There is a nonobstructing 5 mm calculus upper pole right kidney. The left kidney measures 9.18 cm. No hydronephrosis. The spleen measures 8.51 cm long. There is a 3.9 x 3.6 x 2.8 cm mass in the spleen which was not se en on the CT scan of 06/15/2024. May have been secondary to the lack of IV contrast. If of clinical c oncern recommend repeat study with IV contrast cm, within normal limits. The echogenicity is within n ormal limits. The pancreas is not well visualized due to obscuration from bowel gas. The visualized portions of the IVC and aorta are grossly unremarkable. Aorta measures 1.3 cm. IVC is within normal limits IMPRESSION: 1. CT abdomen pelvis done 06/15/2024 demonstrated a normal pancreas no hydronephrosis and no cholelit hiasis, we will evaluate for those findings on this abdominal ultrasound done within 24 hours. 2. Ultrasound describes a 5 mm nonobstructing calculus upper pole right kidney. On CT done 06/15/2024 there was a punctate calculus noted in the upper pole of the left kidney not the right. 3. Splenic abnormality noted on ultrasound not seen on CT since a CT was not done with IV contrast if this is of clinical concern recommend contrast CT.
[2024-06-17] VITALS (8 sets, daily range): BP systolic 102–117; BP diastolic 65–88; PULSE 62–94; RESP 17–19; TEMP 97.8–98.2; O2SAT 95–100
[2024-06-17 06:18] LABS: Basophils # (auto) 0 10 ^3/uL (0-0.2); Basophils % (auto) 0.3 % (0.0-2.0); Eosinophils # (auto) 0.1 10 ^3/uL (0-0.8); Eosinophils % (auto) 1.2 % (0.0-7.0); Hematocrit 31.9 % (36.0-46.0); Hemoglobin 11.2 g/dL (12.2-16.2); Lymphocytes # (auto) 3.1 10 ^3/uL (0.4-5.4); Lymphocytes % (auto) 43.2 % (10.0-50.0); Mean Corpuscular Hemoglobin 33.1 pg (28.0-32.0); Mean Corpuscular Hgb Conc. 35.2 g/dL (32.0-36.0); Mean Corpuscular Volume 94.1 fL (80.0-100.0); Monocytes # (auto) 0.5 10 ^3/uL (0-1.3); Monocytes % (auto) 6.6 % (0.0-12.0); Neutrophils # (auto) 3.5 10 ^3/uL (1.6-8.6); Neutrophils % (auto) 48.7 % (37.0-80.0); Platelet Count (auto) 207 10^3/uL (140-450); Red Blood Cells 3.39 10^6/uL (4.0-5.20); Red Cell Distribution Width 13.1 % (11.8-14.3); White Blood Cell 7.1 10^3/uL (4.4-10.8)
[2024-06-17 06:36] LABS: Alanine Aminotransferase 11 U/L (7-40); Anion Gap 9 (5-15); Aspartate Aminotransferase 15 U/L (13-40); BUN/Creatinine Ratio 9.1 (10.0-20.0); Calcium 9.1 mg/dL (8.7-10.4); Carbon Dioxide 24 mmol/L (20-31); Glucose 78 mg/dL (74-106); Magnesium 2.2 mg/dL (1.6-2.6); Potassium 3.5 mmol/L (3.5-5.1); Sodium 141 mmol/L (136-145); Total Protein 6.1 g/dL (5.7-8.2)
[2024-06-17 06:37] LABS: Alkaline Phosphatase 45 U/L (46-116); Bilirubin, Total 0.4 mg/dL (0.2-1.0); Blood Urea Nitrogen 7 mg/dL (9-23); Chloride 108 mmol/L (98-107)
--- NOTE | 2024-06-17 09:30 | DVHPNRES ---
Progress Note Date Seen: Jun 17, 2024 Resident Creating Document: KRISTA TATE RESIDENT Medical Necessity Reason Pt with a Central, PICC or Fol: No Subjective Review of Systems Ms. Lloyd is a 23-year-old student past medical history of left-sided kidney stones since December last year, UTI secondary to e coli and strep, questionable birthmark on right face who presented to the ER with a chief complaint of left flank pain radiating to the back and groin past 2 weeks. She reports she has been on a lot of antibiotics recently, she stops taking antibiotics once she feels better, reports worsening left flank pain which is sharp associated with feeling of cold and hot, sweating, chills with no fever, nausea or vomiting. She reports pain 10/10. Reports altered bowel movements because of the pain and also reports loss of appetite. Came to the ER on 06/07 when imaging showed to 2 X 4 mm left kidney stone. She smokes marijuana. On arrival, patient was vitally stable. WBC was 13.5 which downtrended to 7. Patient reported intractable pain. Lactic acidosis was 3 on arrival. Lipase elevated at 136. CT showed small free fluid which is physiological. 18 mm ovarian cyst. Punctate nonobstructive left upper pole calculus. Patient refused abdominal ultrasound to rule out hydronephrosis and refused physical examination at this time due to pain. Past medical/surgical history: See above Social history: Smokes marijuana, patient is a student, denies drinking or illicit drug use Patient seen and examined at the bedside. Objective vital signs Vital Sign Date Time Temp Pulse Resp B/P (MAP) Pulse Ox O2 Delivery O2 Flow Rate FiO2 06/17/24 06:34 58 18 102/66 06/17/24 05:00 97.9 100 97.9 06/17/24 00:30 Room Air* 0 21 Total Intake and Output 06/16/24 06/16/24 06/17/24 15:00 23:00 07:00 Intake Total 85 ml 870 ml 500 ml Balance 85 ml 870 ml 500 ml medications Current Medications Medications Dose Ordered Sig/Mina Route Start Time Stop Time Status Last Admin Dose Admin Ceftriaxone Sodium 50 ml @ 100 mls/hr DAILY@09 IV 06/16/24 09:00 06/17/24 08:42 100 MLS/HR Acetaminophen/ Hydrocodone Bitart 1 tab Q4HP PRN PO 06/15/24 21:45 3/22/25 01:28 1 TAB Ondansetron HCl 4 mg Q4HP PRN IV 06/15/24 21:45 06/16/24 20:28 4 MG Docusate Sodium 100 mg BIDPRN PRN PO 06/15/24 21:45 Acetaminophen 650 mg Q6HP PRN PO 06/15/24 21:45 Nitroglycerin 0.4 mg Q5MINP PRN SL 06/15/24 22:45 Metronidazole 100 ml @ 100 mls/hr Q8HR IV 06/16/24 14:00 06/17/24 05:49 100 MLS/HR Ergocalciferol 50,000 unit Q7D PO 06/16/24 12:00 06/16/24 12:24 50,000 UNIT Ketorolac Tromethamine 15 mg Q6HPRN PRN IV 06/16/24 12:00 06/21/24 11:59 Morphine Sulfate 1 mg Q4HPRN PRN IV 06/16/24 12:00 06/17/24 06:34 1 MG Tamsulosin HCl 0.4 mg QPM PO 06/16/24 18:00 06/16/24 18:09 0.4 MG Sodium Chloride 1,000 ml @ 100 mls/hr Q10H IV 06/16/24 14:30 06/17/24 00:30 100 MLS/HR Pantoprazole Sodium 40 mg DAILY IV 06/17/24 10:00 Examination Patient lying in bed, in no acute distress General: Well-built, afebrile, palor, mucosae are moist Cardiovascular: Regular S1 and S2. No murmurs, gallops or rubs. No JVD elevation. No pedal edema Respiratory: Normal B/L air entry on room air. Clear lung sounds on auscultation Abdomen: Soft, nontender, nondistended, normoactive bowel sounds, no rebound tenderness, no organomegaly, no masses Genitourinary: Deferred MSK/skin: Mobilizes 4 limbs. Skin is dry and warm Neurological: No motor, no sensitive deficits, normal speech. Pupils are isocoric and reactive. Psych/Mental Status: A/Ox3 laboratory and microbiology Laboratory Tests 06/17/24 05:23 Test 06/17/24 05:23 Range/Units Serum Glucose 78 74-106 mg/dL Problem List/Assessment/Plan Problem List/Assessment/Plan Possible SIRS secondary to pancreatitis Probable acute pancreatitis? left nephrolithiasis Lactic acidosis-resolved Intractable pain secondary to above Ruled out splenic mass Endometriosis CT scan W/O contrast completed, showed unctate nonobstructive left upper pole renal calculus. No hydronephrosis. Free fluid in the pelvis is likely physiologic. Left ovarian cyst. US: The spleen measures 8.51 cm long. There is a 3.9 x 3.6 x 2.8 cm mass in the spleen which was not seen on the CT scan of 06/15/2024. May have been secondary to the lack of IV contrast. CT w contrast: No acute intraabdominal abnormality. Spleen is normal. 3.1 cm left ovarian cyst. Continue IV metronidazole starting 06/16, continue IV ceftriaxone starting 06/15 IV Toradol for moderate pain, Tylenol for mild pain, [place] for severe pain Tamsulosin 0.4 mg daily Blood culture pending soft diet plasma alcohol within normal limits, triglyceride WNL Pt is being studying outpatient for endometriosis Left ovarian cyst Pelvic ultrasound showed follicular cyst Vitamin-D deficiency Supplemented Lovenox 40 mg sc daily Plan discussed with the patient in which all questions have been answered Goals of care discussed with patient for more than 20 minutes, full code status Case discussed with Dr. Harding Plan discussed with: Patient, Other (rn) My Orders My Orders Orders - KRISTA TATE Procedure Category Date Status Time Lipase LAB 06/17/24 Logged 09:25 Date of Service: Jun 17, 2024 Billing Provider: ABDELRAHMAN HARDING DO Common Visit Codes: [id number] INP/OBS CARE(HIGH) KRISTA TATE Jun 17, 2024 09:30 ABDELRAHMAN HARDING DO Jun 18, 2024 18:20
[2024-06-17] MEDS: PANTOPRAZOLE 40 MG/10 ML VIAL INJ IV SCH (09:43)
[2024-06-17] MEDS: IOHEXOL 300 MG/ML 100ML BOTTLE IJ ONE (12:39)
--- NOTE | 2024-06-17 13:37 | DVH ---
CT CT AB PEL WITH IV CON ONLY INDICATION: splenic mass EXAM DATE: 06/17/2024 12:44 PM COMPARISON: CT CT AB PEL WITH IV CON ONLY on DOS: 01/12/24, CT CT AB PEL WITH IV CON ONLY on DOS: 01/05/24 RADIATION DOSE: CTDIvol: 5.07 mGy, DLP: 229.31 mGy*cm PROCEDURE: Helical CT images were obtained of the abdomen and pelvis with IV contrast Sagittal and co jean reconstructions are provided. ORAL CONTRAST: None. ADDITIONAL IMAGES / REFORMATS: None All CT s cans at this medical facility are performed using dose modulation techniques as appropriate to a perf ormed exam including the following: Automated exposure control was utilized; adjustment of the MA and /or KV according to patient size; and use of iterative reconstruction technique. FINDINGS: LUNG BASE: Normal. LIVER: Normal. GALLBLADDER AND BILIARY TREE: No calcified gallstones. Normal caliber wall. No intra- or extrahepatic biliary ductal dilation. PANCREAS: Normal. SPLEEN: Normal. BOWEL: Normal. Normal appendix. ADRENALS: Normal. KIDNEYS AND URETER: Punctate nonobstructive left kidney stone. BLADDER: Normal. REPRODUCTIVE ORGANS: 3.1 cm left ovarian cyst. LYMPH NODES:No lymphadenopathy. PERITONEUM: Pelvic fluid is seen, similar to prior. VESSELS: Scattered atherosclerotic calcifications are noted. RETROPERITONEUM: Normal. ABDOMINAL WALL: Normal. BONES: Scattered osseous degenerative changes are noted. IMPRESSION: No acute intraabdominal abnormality. Spleen is normal. 3.1 cm left ovarian cyst. Pelvic fluid is seen, similar to prior.
[2024-06-18] MEDS ORDERED: ONDANSETRON HCL 4 MG/2 ML VIAL IV PRN (00:15)
[2024-06-18] MEDS ORDERED: ACETAMINOPHEN 325 MG TAB PO PRN (00:15)
[2024-06-18] MEDS ORDERED: KETOROLAC TROMETH 30 MG/ML 1ML VIAL IV PRN (00:15)
[2024-06-18] MEDS ORDERED: NITROGLYCERIN 0.4 MG SL TAB SL PRN (00:15)
[2024-06-18] MEDS: DOCUSATE SOD 100 MG CAP PO PRN (00:22)
[2024-06-18] MEDS: MORPHINE SULFATE INJ 2 MG/ml SYRG IV PRN (00:23)
[2024-06-18] MEDS: SODIUM CHLORIDE 0.9% 1,000 ML IV SCH (00:29)
[2024-06-18] MEDS: ERGOCALCIFEROL 50,000 UNIT(1.25MG) CAP PO SCH (00:30)
[2024-06-18 01:00] VITALS: BP 114/75; PULSE 99; RESP 17; TEMP 98.3; O2SAT 100
[2024-06-18] MEDS: HYDROcodone-ACET 5/325MG TAB PO PRN (03:42)
[2024-06-18 05:00] VITALS: BP 114/74; PULSE 90; RESP 17; TEMP 97.5; O2SAT 98
[2024-06-18] MEDS: metroNIDAZOLE 500MG/100ML 100 ML IV SCH (05:46)
[2024-06-18 08:00] VITALS: PULSE 69; RESP 14; O2SAT 98
[2024-06-18 08:30] VITALS: BP 84/44; PULSE 65; RESP 14; TEMP 97; O2SAT 98
[2024-06-18] MEDS: PANTOPRAZOLE 40 MG/10 ML VIAL INJ IV SCH (09:12)
[2024-06-18] MEDS: cefTRIAXone 1GM/50ML D5W 50 ML IV SCH (09:13)
[2024-06-18 12:30] VITALS: BP 119/72; PULSE 112; RESP 18; TEMP 97.6; O2SAT 99
[2024-06-18] MEDS ORDERED: NAP500T PO (12:32)
[2024-06-18] MEDS ORDERED: TAMS-35 PO (12:32)
[2024-06-18] MEDS ORDERED: METR-344 PO (12:32)
[2024-06-18] MEDS ORDERED: CHOL500021 OR (13:33)
--- NOTE | 2024-06-18 13:34 | DVHDSRES ---
Discharge Summary Date of Admission Resident Creating Document: ELDA DE LOS SANTOS RESIDENT Jun 15, 2024 at 22:41 Date of Discharge: Jun 18, 2024 Labs/Diagnostic Data: Laboratory Results Test 06/17/24 05:23 06/16/24 05:39 06/15/24 15:39 06/15/24 13:20 White Blood Count 7.1 10^3/uL (4.4-10.8) Red Blood Count 3.39 10^6/uL (4.0-5.20) Hemoglobin 11.2 g/dL (12.2-16.2) Hematocrit 31.9 % (36.0-46.0) Mean Corpuscular Volume 94.1 fL (80.0-100.0) Mean Corpuscular Hemoglobin 33.1 pg (28.0-32.0) Mean Corpuscular Hemoglobin Concent 35.2 g/dL (32.0-36.0) Red Cell Distribution Width 13.1 % (11.8-14.3) Platelet Count 207 10^3/uL (140-450) Mean Platelet Volume 7.4 fL (6.9-10.8) Neutrophils (%) (Auto) 48.7 % (37.0-80.0) Lymphocytes (%) (Auto) 43.2 % (10.0-50.0) Monocytes (%) (Auto) 6.6 % (0.0-12.0) Eosinophils (%) (Auto) 1.2 % (0.0-7.0) Basophils (%) (Auto) 0.3 % (0.0-2.0) Neutrophils # (Auto) 3.5 10 ^3/uL (1.6-8.6) Lymphocytes # (Auto) 3.1 10 ^3/uL (0.4-5.4) Monocytes # (Auto) 0.5 10 ^3/uL (0-1.3) Eosinophils # (Auto) 0.1 10 ^3/uL (0-0.8) Basophils # (Auto) 0 10 ^3/uL (0-0.2) Nucleated Red Blood Cells 0.0 % Sodium Level 141 mmol/L (136-145) Potassium Level 3.5 mmol/L (3.5-5.1) Chloride Level 108 mmol/L (98-107) Carbon Dioxide Level 24 mmol/L (20-31) Anion Gap 9 (5-15) Blood Urea Nitrogen 7 mg/dL (9-23) Creatinine 0.77 mg/dL (0.550-1.02) Glomerular Filtration Rate Calc 110 mL/min (>90) BUN/Creatinine Ratio 9.1 (10.0-20.0) Serum Glucose 78 mg/dL (74-106) Calcium Level 9.1 mg/dL (8.7-10.4) Magnesium Level 2.2 mg/dL (1.6-2.6) Total Bilirubin 0.4 mg/dL (0.2-1.0) Aspartate Amino Transferase (AST) 15 U/L (13-40) Alanine Aminotransferase (ALT) 11 U/L (7-40) Alkaline Phosphatase 45 U/L (46-116) Total Protein 6.1 g/dL (5.7-8.2) Albumin 4.0 g/dL (3.2-4.8) Lipase 65 U/L (12-53) Erythrocyte Sedimentation Rate 8 mm/hr (0-20) Prothrombin Time 11.3 sec (9.3-11.8) Prothrombin Time INR 1.07 (0.9-1.15) Activated Partial Thromboplast Time 26.1 SEC (24.5-34.5) C-Reactive Protein High Sensitivity 0.26 mg/dL (<1.0) Triglycerides Level 85 mg/dL (< 150) Cholesterol Level 141 mg/dL (< 200) LDL Cholesterol 79 mg/dL (< 100) HDL Cholesterol 56 mg/dL (40-59) Vitamin B12 Level 240 pg/mL (211-911) Vitamin D 25-Hydroxy 20.3 ng/mL (30.0-100) Thyroid Stimulating Hormone (TSH) 2.56 uIU/mL (0.55-4.78) Plasma/Serum Blood Alcohol < 3.0 mg/dL (<10) Lactic Acid Level 0.8 mmol/L (0.4-2.0) Urine Color Colorless (Yellow) Urine Clarity Clear (Clear) Urine pH 6.5 (5.0-9.0) Urine Specific [place] 1.005 (1.001-1.035) Urine Protein Negative (Negative) Urine Ketones Negative (Negative) Urine Blood 1+ /uL (Negative) Urine Nitrite Negative (Negative) Urine Bilirubin Negative (Negative) Urine Urobilinogen Normal mg/dL (Negative) Urine Leukocyte Esterase Negative /uL (Negative) Urine RBC 3 /hpf (0 - 4) Urine Microscopic WBC < 1 /HPF (0-5) Urine Squamous Epithelial Cells Few /hpf (<5) Urine Bacteria None seen /hpf (None Seen) Urine Glucose Normal mg/dL (Normal) Urine Test Negative (Negative) Other Laboratory Tests 06/17/24 05:23 Brief Hx & Hospital Course: Ms. Lloyd is a 23-year-old student past medical history of left-sided kidney stones since December last year, UTI secondary to e coli and strep, questionable birthmark on right face who presented to the ER with a chief complaint of left flank pain radiating to the back and groin past 2 weeks. She reports she has been on a lot of antibiotics recently, she stops taking antibiotics once she feels better, reports worsening left flank pain which is sharp associated with feeling of cold and hot, sweating, chills with no fever, nausea or vomiting. She reports pain 10/10. Reports altered bowel movements because of the pain and also reports loss of appetite. Came to the ER on 06/07 when imaging showed to 2 X 4 mm left kidney stone. She smokes marijuana. Past medical/surgical history: See above Social history: Smokes marijuana, patient is a student, denies drinking or illicit drug use On arrival, patient was vitally stable. WBC was 13.5 which downtrended to 7. Patient reported intractable pain. Lactic acidosis was 3 on arrival. Lipase elevated at 136. CT showed small free fluid which is physiological. 18 mm ovarian cyst. Punctate nonobstructive left upper pole calculus. Patient refused abdominal ultrasound to rule out hydronephrosis and refused physical examination at this time due to pain. Lipase Trended upwards,400. Was started on IV ceftriaxone and metronidazol which she received from 06/15 till 06/18. Triglyceride WNL, plasma alcohol WNL, Started tamsulosin 0.4 mg daily. Patient was started on clear liquid diet, which she tolerated well. Abdominal ultrasound showed a stone 5 mm nonobstructing upper pole right kidney. Ultrasound abdomen also showed splenic abnormality which was ruled out and abdominal IV contrast. 06/18-patient is hemodynamically stable, clinically stable and is therefore being discharged on toilet metronidazole for the next 5 days, naproxen TID p.r.n., and tamsulosin 0.4 mg daily along with vitamin-D supplementation. She was advised to drink plenty of fluids, follow up with PCP, urologist as outpatient. Condition at Discharge: Stable Final Diagnosis/Problems List Possible SIRS secondary to pancreatitis Probable acute pancreatitis left and right nonobstructive nephrolithiasis Lactic acidosis-resolved Intractable pain secondary to above Left ovarian cyst Vitamin-D deficiency Discharge Disposition: Home Discharge Instruct/Medications Diet: See Comment Diet comment: Drink plenty of fluids Activity: No Restrictions, As Tolerated Follow Up/Referral: Follow up with Urology as outpatient within 7 days Follow up with primary care physician within 7 days Follow up with discharge clinic within 7 days Medications: Tablet Flagyl 500 mg TID for the next 5 days Tablet tamsulosin 0.4 mg daily Discharge Statement: "Patient was advised to return to the ER or call 911 if any headaches, dizziness, shortness of breath, chest pain, abdominal pain, bleeding, fevers, or worsening of medical condition. Patient was counseled about treatment plan, medications, possible side effects, patientverbalized understanding. All questions were answered to the best of my ability. This discharge took greater then 30 minutes in planning, reviewing documentation, counseling the patient, and discussing with other team members." ASSESSMENT ASSESSMENT Assessment Possible SIRS secondary to pancreatitis Probable acute pancreatitis left nephrolithiasis 5mm Lactic acidosis-resolved Intractable pain secondary to above Date of Service: Jun 18, 2024 Billing Provider: ABDELRAHMAN HARDING DO Common Visit Codes: 84369-DDU/OBS DISCH DAY >30min ELDA DE LOS SANTOS RESIDENT Jun 18, 2024 13:34 ABDELRAHMAN HARDING DO Jun 18, 2024 18:20
[2024-06-18 14:11] VITALS: BP 118/74; PULSE 96; RESP 18; TEMP 36.4; O2SAT 99
[2024-06-18] MEDS ORDERED: TAMSULOSIN HYDROCHLORIDE 0.4 MG CAP PO SCH (18:00)
== END 2024-06-18 16:00 | disposition home or self-care (01) | DRG 439 ==
LOC: ER 12:42 → OVERFLOW 22:41 → EAST 23:43 → OVERFLOW 23:58 → EAST 06-16 00:29 → UNDODISIN 06-17 21:49
PROVIDERS: ADMIT Internal Medicine; ATTEND Internal Medicine
DX: K85.90 Acute pancreatitis without necrosis or infection, unspecified (principal); E87.20 Acidosis, unspecified; R65.10 Systemic inflammatory response syndrome (SIRS) of non-infectious origin without acute organ dysfunction; N20.0 Calculus of kidney; E55.9 Vitamin D deficiency, unspecified; N80.9 Endometriosis, unspecified; N83.202 Unspecified ovarian cyst, left side; Z88.1 Allergy status to other antibiotic agents; Z87.442 Personal history of urinary calculi
CPT/HCPCS: 36415; 74176; 74177; 76700; 76856; 80053; 80061; 80320; 81001; 81025; 82306; 82607; 83605; 83690; 83735; 84443; 85025; 85610; 85652; 85730; 86141; 96365; 96366; 96375; G0378; J1885; J2405; J2470; J2543; J3490

== ENCOUNTER 2024-11-01 09:15 | Emergency (ER) | payer SELFPAY, MEDICAID ==
[~2024-11-01] VITALS: Ht 142.2 cm; Wt 41.5 kg
[~2024-11-01 09:15] MED LIST changes: -CEFD300C2 PO; +CHOL500021 OR; +METR-344 PO; +NAP500T PO; -PERCOT PO; +TAMS-35 PO
[2024-11-01] MEDS ORDERED: TRAM-626 PO ×2 (09:57→10:00)
--- NOTE | 2024-11-01 09:58 | ED.PDOC ---
Back pain HPI HPI Comments THIS IS A 24 YEAR OLD FEMALE PRESENTING TO THE ED WITH CHIEF COMPLAINT OF BACK PAIN. PATIENT REPORTS THAT SHE HAS BEEN EXPERIENCING LEFT SIDED LOWER BACK PAIN WITH ASSOCIATED RADIATION DOWN THE LEG AND HEADACHE FOR THE PAST 6 DAYS. PATIENT RELAYS THAT SHE HAS TAKEN IBUPROFEN AND NAPROSYN WITH NO RELIEF. PATIENT DENIES ANY NUMBNESS, WEAKNESS, FALL, INJURY, CHEST PAIN, SOB, OR DIZZINESS. NO OTHER SYMPTOMS REPORTED AT THIS TIME OF CARE. Chief Complaint: Back Pain Time Seen by MD: 09:56 Primary Care Provider: DEVIN Miller Notes: Nurses Notes, Medications, Allergies Allergies: Coded Allergies: Levofloxacin (Verified Allergy, Intermediate, 01/01/24) Home Meds Active Scripts Tramadol HCl (Tramadol HCl) 50 Mg Tab, 50 MG PO BID, #20 TAB Prov:PINKY BANERJEE 11/01/24 Cholecalciferol (VITAMIN D) 5,000 Unit Tab, 5000 UNIT OR DAILY for 30 Days, #30 TAB Prov:ELDA DE LOS SANTOS 06/18/24 Naproxen (NAPROSYN TABLET) 500 Mg Tb, 1 TAB PO TID for 10 Days, #30 TAB 1 Refill Prov:ABDELRAHMAN HARDING 06/18/24 Metronidazole (Flagyl) 500 Mg Tab, 1 TAB PO TID for 5 Days, #15 TAB Prov:HARDINGABDELRAHMAN Romero Anca HAND 06/18/24 Tamsulosin Hcl (Flomax) 0.4 Mg Cap, 0.4 MG PO QPM for 30 Days, #30 CAP 2 Refills Prov:ABDELRAHMAN HARDING Anca HAND 06/18/24 Information Source: Patient Mode of Arrival: Ambulatory Timing: Days Duration: Since onset Location of Back pain: (L) Lower back Radiates to: Posterior: (L) Buttocks, (L) Thigh Radiates to: Medial: (L) Thigh Radiates to: Lateral: (L) Buttocks, (L) Thigh Severity: Moderate Prehospital treatment: None Quality: Aching Onset: Spontaneous History of: Urolithiasis, Pyelonephritis Modifying Factors: Movement, Twisting Associated signs and symptoms: None Past Medical History PAST MEDICAL HISTORY: Kidney Stones, UTI'S Surgical History: Denies all surgeries [employer] History: 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 Family History Family History: Reviewed,noncontributory to illness Social History Smoker: Non-Smoker Alcohol: Denies ETOH Use Drugs: Denies Drug Use Lives In: Home Constitutional: denies: chills, diaphoresis, fatigue, fever, malaise, sweats, weakness, others EENTM: denies: blurred vision, double vision, ear bleeding, ear discharge, ear drainage, ear pain, ear ringing, eye pain, eye redness, hearing loss, mouth pain, mouth swelling, nasal discharge, nose bleeding, nose congestion, nose pain, photophobia, tearing, throat pain, throat swelling, voice changes, others Respiratory: denies: cough, hemoptysis, orthopnea, SOB at rest, shortness of breath, SOB with excertion, stridor, wheezing, others Cardiovascular: denies: chest pain, dizzy spells, diaphoresis, Dyspnea on exertion, edema, irregular heart beat, left arm pain, lightheadedness, palpitations, PND, syncope, others Gastrointestinal: denies: abdomen distended, abdominal pain, blood streaked bowels, constipated, diarrhea, dysphagia, difficulty swallowing, hematemesis, melena, nausea, poor appetite, poor fluid intake, rectal bleeding, rectal pain, vomiting, others Genitourinary: denies: abnormal vagina bleeding, burning, dyspareunia, dysuria, flank pain, frequency, hematuria, incontinence, pain, , vagina discharge, urgency, others Neurological: denies: dizziness, fainting, headache, left sided numbness, left sided weakness, numbness, paresthesia, pre-existing deficit, right sided numbness, right sided weakness, seizure, speech problems, tingling, tremors, weakness, others Musculoskeletal: reports: back pain, muscle pain; denies: gout, joint pain, j oint swelling, muscle stiffness, neck pain, others Integumetry: denies: bruises, change in color, change in hair/nails, dryness, laceration, lesions, lumps, rash, wounds, others Allergic/Immunocompromised: denies: Difficulty Healing, Frequent Infections, Hives, Itching, others Hematologic/Lymphatic: denies: anemia, blood clots, easy bleeding, easy bruising, swollen glands, others Endocrine: denies: excessive hunger, excessive sweating, excessive thirst, excessive urination, flushing, intolerance to cold, intolerance to heat, unexplained weight gain, unexplained weight loss, others Psychiatric: denies: anxiety, bipolar disorder, depression, hopeless, panic disorder, schizophrenia, sleepless, suicidal, others All Other Systems: Reviewed and Negative Physical Exam General Appearance: No Apparent Distress, Normal HEENT: Normal ENT Inspection, PERRL/EOMI, Pharynx Normal, TMs Normal Neck: Full Range of Motion, Non-Tender, Normal, Normal Inspection Respiratory: Chest Non-Tender, Lungs Clear, No Accessory Muscle Use, No Respiratory Distress, Normal Breath Sounds Cardiovascular: No Edema, No JVD, No Murmur, No Gallop, Normal Peripheral Pulses, Regular Rate/Rhythm Breast Exam: Deferred Gastrointestinal: No Organomegaly, Non Tender, No Pulsatile Mass, Normal Bowel Sounds, Soft Genitalia: Deferred Pelvic: Deferred Rectal: Deferred Extremities: No calf tenderness, Normal capillary refill, Normal inspection, Normal range of motion, Non-tender, No pedal edema Musculoskeletal : Location: Left Extremity Location: Back Apperance: Tenderness: Moderate (TENDERNESS AND MUSCLE SPASM ON LOWER BACK, NO BONY TENDERNESS, SWELLING AND DEFORMITY. ) Neurologic: Alert, director loan II-XII nml as Tested, No Motor Deficits, Normal Affect, Normal Mood, No Sensory Deficits Cerebellar Function: Normal Reflexes: Normal Skin: Dry, Normal Color, Warm Peripheral Pulses: 2+ carotid (R), 2+ carotid (L) Lymphatic: No Adenopathy Was a procedure done? Was a procedure done?: No Back Pain Differential Dx Differential Diagnosis: Musculoskeletal Pain, Strain, Other (LEFT SCIATIC PAIN ) X-Ray, Labs, Meds, VS Vital Signs Date Time Temp Pulse Resp B/P (MAP) Pulse Ox O2 Delivery O2 Flow Rate FiO2 11/01/24 09:17 98.0 68 15 109/69 99 98.0 X-Ray, Labs, Meds, VS Comment EXTERNAL MEDICAL RECORDS REVIEWED: [NONE] INDEPENDENT HISTORIANS: [NONE] SOCIAL DETERMINANTS OF HEALTH: [NONE] LABS ORDERED: NONE REVIEWED AND INTERPRETED RESULTS: NONE IMAGING ORDERED: NONE TREATMENTS ORDERED: NONE PROCEDURES PERFORMED: NONE CRITICAL CARE TIME: NONE I HAVE DISCUSSED THE PATIENT WITH THE ATTENDING PHYSICIAN DR. MILTON AND HE AGREES WITH THE PATIENT'S PLAN OF CARE AND DISPOSITION. BASED ON HISTORY OF PRESENT ILLNESS, AND PHYSICAL EXAM, PATIENT WILL BE DISCHARGED HOME. DISCUSSED PLAN FOR DISCHARGE HOME WITH RX TRAMADOL. MEDICATION WARNINGS GIVEN. SHARED DECISION MAKING: DISCUSSED WITH PATIENT THAT THEIR WORKUP WAS NORMAL. PATIENT INSTRUCTED TO FOLLOW UP WITH PRIMARY CARE PROVIDER IN 1-2 DAYS FOR RE- EVALUATION OF SYMPTOMS. PATIENT VERBALIZES UNDERSTANDING TO RETURN TO ED FOR NEW OR WORSENING SYMPTOMS OR IF FOLLOW UP WITH PCP CANNOT BE OBTAINED. PATIENT FEELS COMFORTABLE GOING HOME AT THIS TIME. ALL QUESTIONS ADDRESSED AT TIME OF DISCHARGE. Time of 1ST Reevaluation: 10:04 Reevaluation 1ST: Improved Patient Education/Counseling: Diagnosis, Treatment, Need For Follow Up Family Education/Counseling: Diagnosis, Treatment, No Family Present Medical Screening: No EMC Exist At This Time SEPSIS Sepsis Screen Date sepsis recognized/suspect: Nov 01, 2024 Time Sepsis recognized/suspect: 919 Recent Procedure: No On Antibiotic Therapy: No Respiratory Rate >20: No Heart Rate >90: No Temp<36 C (96.8 F) or >38.3 C: No SBP <90 or MAP <65 mmHG: No New Acute Mental Status Change: No Is the patient on CPAP, BIPAP,: No Vital Signs Date Time Temp Pulse Resp B/P (MAP) Pulse Ox O2 Delivery O2 Flow Rate FiO2 11/01/24 09:17 98.0 68 15 109/69 99 98.0 Departure 1 Departure Time of Disposition: 10:04 Impression: Primary Impression: Left sided sciatica Disposition: 01 HOME / SELF CARE / HOMELESS Condition: Stable Additional Instructions: FOLLOW-UP WITH PCP IN 1 TO 2 DAYS. TAKE MEDICATIONS PRESCRIBED. RETURN TO ED FOR ANY NEW OR WORSENING SYMPTOMS. e-Prescriptions Tramadol HCl (Tramadol HCl) 50 Mg Tab 50 MG PO BID, #20 TAB Prov: PINKY BANERJEE 11/01/24 Discharged With: Self Critical Care Note Critical Care Time?: No Stability Stability form required: No Heart Score Heart Score: Heart Score Response (Comments) Value History N/A 0 EKG N/A 0 Age N/A 0 Risk Factors N/A 0 Troponin N/A 0 Total 0 I personally scribed for PINKY BANERJEE ([email or web address]) on 11/01/24 at 09:58. Elec tronically submitted by Jone Kendrick ([email or web address]). PINKY BANERJEE Nov 01, 2024 09:58
[2024-11-01 10:06] VITALS: BP 109/69; PULSE 68; RESP 15; TEMP 98; O2SAT 99
== END 2024-11-01 10:07 | disposition home or self-care (01) ==
LOC: ER 09:15
DX: M54.32 Sciatica, left side (principal); Z88.1 Allergy status to other antibiotic agents

== ENCOUNTER 2024-11-12 18:43 | Emergency (ER) | payer SELFPAY, MEDICAID ==
[~2024-11-12] VITALS: Ht 149.9 cm; Wt 43.0 kg
[~2024-11-12 18:43] MED LIST changes: +TRAM-626 PO
[2024-11-12 19:54] LABS: Hematocrit 39.7 % (36.0-46.0); Hemoglobin 13.7 g/dL (12.2-16.2); Mean Corpuscular Hemoglobin 32.7 pg (28.0-32.0); Mean Corpuscular Volume 95.0 fL (80.0-100.0); Nucleated Red Blood Cells % 0.1 %
[2024-11-12] MEDS: ONDANSETRON ODT 4 MG TAB PO ONE (20:04)
--- NOTE | 2024-11-12 20:04 | ED.PDOC ---
History of Present Illness HPI Comments 24 y/o F, with a history of left sided kidney stones, UTI secondary to E. coli and strep, endometriosis and ovarian cysts, and marijuana use, presents with c/c left flank pain radiating to her back, groin and left thigh and lower leg. Patient endorses 1x week history of symptoms, which she was seen and evaluated for last week, with no improvement. Patient reports history of symptoms in the past with previous flare ups with no significant findings with subsequent ED visits and PCP. Denies any recent trauma or injury. Denies any weakness, numbness, tingling, urinary symptoms, fever, chills, or further associated symptoms. Chief Complaint: Flank Pain Time Seen by MD: 19:25 Primary Care Provider: DEVIN Miller Notes: Nurses Notes, Medications, Allergies Allergies: Coded Allergies: Levofloxacin (Verified Allergy, Intermediate, 01/01/24) Home Meds Active Scripts Tramadol HCl (Tramadol HCl) 50 Mg Tab, 50 MG PO BID, #20 TAB Prov:PINKY BANERJEE 11/01/24 Cholecalciferol (VITAMIN D) 5,000 Unit Tab, 5000 UNIT OR DAILY for 30 Days, #30 TAB Prov:ELDA DE LOS SANTOS RESIDENT 06/18/24 Naproxen (NAPROSYN TABLET) 500 Mg Tb, 1 TAB PO TID for 10 Days, #30 TAB 1 Refill Prov:ABDELRAHMAN HARDING DO 06/18/24 Metronidazole (Flagyl) 500 Mg Tab, 1 TAB PO TID for 5 Days, #15 TAB Prov:ABDELRAHMAN HARDING DO 06/18/24 Tamsulosin Hcl (Flomax) 0.4 Mg Cap, 0.4 MG PO QPM for 30 Days, #30 CAP 2 Refills Prov:ABDELRAHMAN HARDING DO 06/18/24 Information Source: Patient Mode of Arrival: Ambulatory Severity: Moderate Duration: Since onset Prehospital treatment: None Past Medical History PAST MEDICAL HISTORY: Kidney Stones (left sided ), UTI'S (secondary to E. 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 (s/p surgical intervention), 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 (s/p mp gical intervention) Family History Family History: Reviewed,noncontributory to illness Social History Smoker: Non-Smoker Alcohol: Denies ETOH Use Drugs: Marijuana Lives In: Home All Other Systems: Reviewed and Negative (Comprehensive systems review obtained and negative except for what is stated in the HPI.) Physical Exam General Appearance: Moderate Distress, Normal HEENT: Normal ENT Inspection, Pharynx Normal, TMs Normal Neck: Full Range of Motion, Non-Tender, Normal, Normal Inspection Respiratory: Chest Non-Tender, Lungs Clear, No Accessory Muscle Use, No Respiratory Distress, Normal Breath Sounds Cardiovascular: No Edema, No JVD, No Murmur, No Gallop, Normal Peripheral Pulses, Regular Rate/Rhythm Breast Exam: Deferred Gastrointestinal: LLQ (tenderness ), No Organomegaly, No Pulsatile Mass, Normal Bowel Sounds, Soft, Tenderness (LLQ) Genitalia: Deferred Pelvic: Deferred Rectal: Deferred Extremities: No calf tenderness, Normal capillary refill, Normal inspection, Normal range of motion, Non-tender, No pedal edema Musculoskeletal : Apperance: Normal Neurologic: Alert, 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 Was a procedure done?: No Differential Dx Considerations may include: ovarian cysts, ovarian torsion, endometriosis, sciatica, kidney stones, PID, among others X-Ray, Labs, Meds, VS Vital Signs Date Time Temp Pulse Resp B/P (MAP) Pulse Ox O2 Delivery O2 Flow Rate FiO2 11/12/24 20:09 98.2 72 20 103/79 (87) 99 98.2 11/12/24 20:09 72 20 99 Room Air 11/12/24 18:44 97.9 109 15 159/72 98 97.9 Lab Test 11/12/24 20:03 11/12/24 19:39 Range/Units Urine Color Colorless Yellow Urine Clarity Clear Clear Urine pH 5.5 5.0-9.0 Urine Specific [place] 1.009 1.001-1.035 Urine Protein Negative Negative Urine Ketones Negative Negative Urine Blood Trace H Negative /uL Urine Nitrite Negative Negative Urine Bilirubin Negative Negative Urine Urobilinogen Normal Negative mg/dL Urine Leukocyte Esterase 2+ Negative /uL Urine RBC 10 0 - 4 /hpf Urine Microscopic WBC 2 0-5 /HPF Urine Squamous Epithelial Cells Few <5 /hpf Urine Bacteria None seen None Seen /hpf Urine Glucose Normal Normal mg/dL Urine Test Negative Negative White Blood Count 9.0 4.4-10.8 10^3/uL Red Blood Count 4.18 4.0-5.20 10^6/uL Hemoglobin 13.7 12.2-16.2 g/dL Hematocrit 39.7 36.0-46.0 % Mean Corpuscular Volume 95.0 80.0-100.0 fL Mean Corpuscular Hemoglobin 32.7 H 28.0-32.0 pg Mean Corpuscular Hemoglobin Concent 34.4 32.0-36.0 g/dL Red Cell Distribution Width 13.8 11.8-14.3 % Platelet Count 236 140-450 10^3/uL Mean Platelet Volume 7.4 6.9-10.8 fL Neutrophils (%) (Auto) 62.2 37.0-80.0 % Lymphocytes (%) (Auto) 29.8 10.0-50.0 % Monocytes (%) (Auto) 6.7 0.0-12.0 % Eosinophils (%) (Auto) 1.1 0.0-7.0 % Basophils (%) (Auto) 0.2 0.0-2.0 % Neutrophils # (Auto) 5.6 1.6-8.6 10 ^3/uL Lymphocytes # (Auto) 2.7 0.4-5.4 10 ^3/uL Monocytes # (Auto) 0.6 0-1.3 10 ^3/uL Eosinophils # (Auto) 0.1 0-0.8 10 ^3/uL Basophils # (Auto) 0 0-0.2 10 ^3/uL Nucleated Red Blood Cells 0.1 % Sodium Level 138 136-145 mmol/L Potassium Level 4.3 3.5-5.1 mmol/L Chloride Level 111 H 98-107 mmol/L Carbon Dioxide Level 19 L 20-31 mmol/L Anion Gap 8 5-15 Blood Urea Nitrogen 6 L 9-23 mg/dL Creatinine 0.94 0.550-1.02 mg/dL Glomerular Filtration Rate Calc 86 >90 mL/min BUN/Creatinine Ratio 6.4 L 10.0-20.0 Serum Glucose 95 74-106 mg/dL Calcium Level 9.1 8.7-10.4 mg/dL Total Bilirubin 0.4 0.2-1.0 mg/dL Aspartate Amino Transferase (AST) 56 H 13-40 U/L Alanine Aminotransferase (ALT) 22 7-40 U/L Alkaline Phosphatase 57 46-116 U/L Total Protein 7.4 5.7-8.2 g/dL Albumin 4.9 H 3.2-4.8 g/dL Lipase 113 H 12-53 U/L Current Medications Medications (Trade) Dose Ordered Sig/Mina Route Start Time Stop Time Status Last Admin Acetaminophen/ Hydrocodone Bitart ([place] 10/325MG Tab) 1 tab ONCE ONCE PO 11/12/24 19:45 11/12/24 19:46 DC 11/12/24 20:05 Ondansetron HCl (Zofran Po) 4 mg ONCE ONCE PO 11/12/24 19:45 11/12/24 19:46 DC 11/12/24 20:04 Time of 1ST Reevaluation: 19:55 Reevaluation 1ST: Unchanged Patient Education/Counseling: Diagnosis, Treatment, Need For Follow Up Family Education/Counseling: No Family Present SEPSIS Sepsis Screen Date sepsis recognized/suspect: Nov 12, 2024 Time Sepsis recognized/suspect: 1846 Recent Procedure: No On Antibiotic Therapy: No Respiratory Rate >20: No Heart Rate >90: No Temp<36 C (96.8 F) or >38.3 C: No SBP <90 or MAP <65 mmHG: No New Acute Mental Status Change: No Is the patient on CPAP, BIPAP,: No Vital Signs Date Time Temp Pulse Resp B/P (MAP) Pulse Ox O2 Delivery O2 Flow Rate FiO2 11/12/24 20:09 98.2 72 20 103/79 (87) 99 98.2 11/12/24 20:09 72 20 99 Room Air 11/12/24 18:44 97.9 109 15 159/72 98 97.9 Laboratory Tests Test 11/12/24 19:39 White Blood Count 9.0 10^3/uL (4.4-10.8) Medications Medications Dose Ordered Sig/Mina Route Start Time Stop Time Status Last Admin Dose Admin Acetaminophen/ Hydrocodone Bitart 1 tab ONCE ONCE PO 11/12/24 19:45 11/12/24 19:46 DC 11/12/24 20:05 Ondansetron HCl 4 mg ONCE ONCE PO 11/12/24 19:45 11/12/24 19:46 DC 11/12/24 20:04 Departure 1 Departure Time of Disposition: 22:00 Impression: Primary Impression: Acute abdominal pain Disposition: LEFT AWOL/ELOPED Condition: Fair Discharged With: Self Critical Care Note Critical Care Time?: No Stability Stability form required: No Heart Score Heart Score: Heart Score Response (Comments) Value History N/A 0 EKG N/A 0 Age N/A 0 Risk Factors N/A 0 Troponin N/A 0 Total 0 I personally scribed for AMBAR LARIOS MD ([email or web address]) on 11/12/24 at 20:04. Electronically submitted by Alcides Braun [email or web address]). AMBAR LARIOS MD Nov 12, 2024 20:04
[2024-11-12] MEDS: HYDROcodone-ACET 10/325MG TAB PO ONE (20:05)
[2024-11-12 20:09] VITALS: BP 103/79; PULSE 72; RESP 20; TEMP 98.2; O2SAT 99
[2024-11-12 20:15] LABS: Alanine Aminotransferase 22 U/L (7-40); Alkaline Phosphatase 57 U/L (46-116); Anion Gap 8 (5-15); BUN/Creatinine Ratio 6.4 (10.0-20.0); Calcium 9.1 mg/dL (8.7-10.4); Glucose 95 mg/dL (74-106); Potassium 4.3 mmol/L (3.5-5.1); Sodium 138 mmol/L (136-145); Total Protein 7.4 g/dL (5.7-8.2)
[2024-11-12 20:16] LABS: Bilirubin, Total 0.4 mg/dL (0.2-1.0)
[2024-11-12 20:31] LABS: Blood Urea Nitrogen 6 mg/dL (9-23); Carbon Dioxide 19 mmol/L (20-31); Chloride 111 mmol/L (98-107)
[2024-11-12 20:32] LABS: Albumin 4.9 g/dL (3.2-4.8); Lipase 113 U/L (12-53)
[2024-11-12 20:34] LABS: Urine Protein, UAD Negative (Negative)
== END 2024-11-12 20:41 | disposition left against medical advice (07) ==
LOC: ER 18:43
DX: R10.9 Unspecified abdominal pain (principal); Z88.1 Allergy status to other antibiotic agents
CPT/HCPCS: 36415; 80053; 81001; 81025; 83690; 85025; 99283; Q0162

== ENCOUNTER 2024-11-13 09:50 | Emergency (ER) | payer SELFPAY, MEDICAID ==
[~2024-11-13] VITALS: Ht 149.9 cm; Wt 41.3 kg
[2024-11-13 09:53] VITALS: TEMP 98
[2024-11-13 11:23] VITALS: BP 104/70; PULSE 61; RESP 18; O2SAT 95
[2024-11-13] MEDS: HYDROcodone-ACET 10/325MG TAB PO ONE (11:23)
[2024-11-13 12:40] LABS: Urine Protein, UAD Negative (Negative)
--- NOTE | 2024-11-13 13:07 | ED.PDOC ---
History of Present Illness HPI Comments 24-year-old female came to the ER stating that she has been having left hip pain for the past week. She does have a history of similar pain for the past month on and for which she has been followed by primary care physician. Primary care physician has not diagnosed with the interim which he versus. She was here yesterday for similar symptom for which she left without waiting for her final diagnosis. Yesterday results does show urinary tract infection along with possible pancreatitis. Lipase was elevated. Denies any other symptoms. Chief Complaint: Flank Pain Time Seen by MD: 09:56 Primary Care Provider: DEVIN Reviewed Notes: Nurses Notes, Medications, Allergies Allergies: Coded Allergies: Levofloxacin (Verified Allergy, Intermediate, 01/01/24) Home Meds Active Scripts Tramadol HCl (Tramadol HCl) 50 Mg Tab, 50 MG PO BID, #20 TAB Prov:PINKY BANERJEE 11/01/24 Cholecalciferol (VITAMIN D) 5,000 Unit Tab, 5000 UNIT OR DAILY for 30 Days, #30 TAB Prov:ELDA DE LOS SANTOS 06/18/24 Naproxen (NAPROSYN TABLET) 500 Mg Tb, 1 TAB PO TID for 10 Days, #30 TAB 1 Refill Prov:SAI HARDINGMY Anca DO 06/18/24 Metronidazole (Flagyl) 500 Mg Tab, 1 TAB PO TID for 5 Days, #15 TAB Prov:ABDELRAHMAN HARDING DO 06/18/24 Tamsulosin Hcl (Flomax) 0.4 Mg Cap, 0.4 MG PO QPM for 30 Days, #30 CAP 2 Refills Prov:ABDELRAHMAN HARDING DO 06/18/24 Information Source: Patient Mode of Arrival: Ambulatory Severity: Moderate Timing: Days Duration: Since onset Past Medical History PAST MEDICAL HISTORY: Kidney Stones, UTI'S Surgical History: 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, 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 Family History Family History: Reviewed,noncontributory to illness Social History Smoker: Non-Smoker Alcohol: Denies ETOH Use Drugs: Marijuana Lives In: Home Constitutional: denies: chills, diaphoresis, fatigue, fever, malaise, sweats, weakness, others EENTM: denies: blurred vision, double vision, ear bleeding, ear discharge, ear drainage, ear pain, ear ringing, eye pain, eye redness, hearing loss, mouth pain, mouth swelling, nasal discharge, nose bleeding, nose congestion, nose pain, photophobia, tearing, throat pain, throat swelling, voice changes, others Respiratory: denies: cough, hemoptysis, orthopnea, SOB at rest, shortness of breath, SOB with excertion, stridor, wheezing, others Cardiovascular: denies: chest pain, dizzy spells, diaphoresis, Dyspnea on exertion, edema, irregular heart beat, left arm pain, lightheadedness, palpitations, PND, syncope, others Gastrointestinal: denies: abdomen distended, abdominal pain, blood streaked bowels, constipated, diarrhea, dysphagia, difficulty swallowing, hematemesis, melena, nausea, poor appetite, poor fluid intake, rectal bleeding, rectal pain, vomiting, others Genitourinary: denies: abnormal vagina bleeding, burning, dyspareunia, dysuria, flank pain, frequency, hematuria, incontinence, pain, , vagina discharge, urgency, others Neurological: denies: dizziness, fainting, headache, left sided numbness, left sided weakness, numbness, paresthesia, pre-existing deficit, right sided numbness, right sided weakness, seizure, speech problems, tingling, tremors, weakness, others Musculoskeletal: reports: joint pain (Left hip); denies: back pain, gout, joint swelling, muscle pain, muscle stiffness, neck pain, others Integumetry: denies: bruises, change in color, change in hair/nails, dryness, laceration, lesions, lumps, rash, wounds, others Allergic/Immunocompromised: denies: Difficulty Healing, Frequent Infections, Hives, Itching, others Hematologic/Lymphatic: denies: anemia, blood clots, easy bleeding, easy bruising, swollen glands, others Endocrine: denies: excessive hunger, excessive sweating, excessive thirst, excessive urination, flushing, intolerance to cold, intolerance to heat, unexplained weight gain, unexplained weight loss, others Psychiatric: denies: anxiety, bipolar disorder, depression, hopeless, panic disorder, schizophrenia, sleepless, suicidal, others Physical Exam General Appearance: Moderate Distress HEENT: Normal ENT Inspection, Pharynx Normal, TMs Normal Neck: Full Range of Motion, Non-Tender, Normal, Normal Inspection Respiratory: Chest Non-Tender, Lungs Clear, No Accessory Muscle Use, No Respiratory Distress, Normal Breath Sounds Cardiovascular: No Edema, No JVD, No Murmur, No Gallop, Normal Peripheral Pulses, Regular Rate/Rhythm Breast Exam: Deferred Gastrointestinal: LLQ Genitalia: Deferred Pelvic: Deferred Rectal: Deferred Extremities: No calf tenderness, Normal capillary refill, Normal inspection, Normal range of motion, Non-tender, No pedal edema Musculoskeletal : Apperance: Normal Neurologic: Alert, sampler pickup II-XII 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 Was a procedure done?: No Differential Dx Considerations may include: Anemia Electrolyte imbalance X-Ray, Labs, Meds, VS Vital Signs Date Time Temp Pulse Resp B/P (MAP) Pulse Ox O2 Delivery O2 Flow Rate FiO2 11/13/24 11:23 61 18 95 Room Air 11/13/24 11:23 61 18 104/70 (81) 95 11/13/24 09:53 98.0 78 16 105/63 98.0 Lab Test 11/13/24 12:31 Range/Units Urine Color Light-yellow Yellow Urine Clarity Clear Clear Urine pH 5.5 5.0-9.0 Urine Specific [place] 1.014 1.001-1.035 Urine Protein Negative Negative Urine Ketones 1+ H Negative Urine Blood Negative Negative /uL Urine Nitrite Negative Negative Urine Bilirubin Negative Negative Urine Urobilinogen Normal Negative mg/dL Urine Leukocyte Esterase Trace Negative /uL Urine RBC 5 0 - 4 /hpf Urine Microscopic WBC 1 0-5 /HPF Urine Squamous Epithelial Cells Few <5 /hpf Urine Bacteria None seen None Seen /hpf Urine Glucose Normal Normal mg/dL Current Medications Medications (Trade) Dose Ordered Sig/Mina Route Start Time Stop Time Status Last Admin Acetaminophen/ Hydrocodone Bitart ([place] 10/325MG Tab) 1 tab ONCE ONCE PO 11/13/24 11:15 11/13/24 11:16 DC 11/13/24 11:23 Patient alert. Complaining of left hip pain. Vitals stable. Answering questions. Mild urinary tract infection. Reviewed her previous visit. Lipase was elevated. Continues to have hip pain. CT scan of the abdomen. Establish intravenous access. Was given fluids. Was given Rocephin. Explained to the patient. Continue monitoring. Time of 1ST Reevaluation: 13:04 Reevaluation 1ST: Unchanged Patient Education/Counseling: Diagnosis, Treatment, Prognosis, Need For Follow Up Family Education/Counseling: No Family Present SEPSIS Sepsis Screen Date sepsis recognized/suspect: Nov 13, 2024 Time Sepsis recognized/suspect: 56 Recent Procedure: No On Antibiotic Therapy: No Respiratory Rate >20: No Heart Rate >90: No Temp<36 C (96.8 F) or >38.3 C: No SBP <90 or MAP <65 mmHG: No New Acute Mental Status Change: No Is the patient on CPAP, BIPAP,: No Physician Orders Complete Blood Count (11/13/24 12:05) Basic Metabolic Panel (11/13/24 12:05) Lipase (11/13/24 12:05) Vital Signs Date Time Temp Pulse Resp B/P (MAP) Pulse Ox O2 Delivery O2 Flow Rate FiO2 11/13/24 11:23 61 18 95 Room Air 11/13/24 11:23 61 18 104/70 (81) 95 11/13/24 09:53 98.0 78 16 105/63 98.0 Medications Medications Dose Ordered Sig/Mina Route Start Time Stop Time Status Last Admin Dose Admin Acetaminophen/ Hydrocodone Bitart 1 tab ONCE ONCE PO 11/13/24 11:15 11/13/24 11:16 DC 11/13/24 11:23 Departure 1 Departure Time of Disposition: 13:06 Impression: Primary Impression: Acute abdominal pain Additional Impressions: UTI (urinary tract infection) Qualified Codes: N39.0 - Urinary tract infection, site not specified Elevated lipase Disposition: 09 ADMITTED INPATIENT Admit to: Med Surg Condition: Guarded Critical Care Note Critical Care Time?: No Stability Stability form required: No Heart Score Heart Score: Heart Score Response (Comments) Value History N/A 0 EKG N/A 0 Age N/A 0 Risk Factors N/A 0 Troponin N/A 0 Total 0 BERNARDA MOLINA MD Nov 13, 2024 13:07
[2024-11-13 13:14] LABS: Hematocrit 38.5 % (36.0-46.0); Hemoglobin 13.2 g/dL (12.2-16.2); Mean Corpuscular Hemoglobin 32.9 pg (28.0-32.0); Mean Corpuscular Volume 96.0 fL (80.0-100.0); Nucleated Red Blood Cells % 0.1 %
[2024-11-13 13:19] LABS: Anion Gap 7 (5-15); Carbon Dioxide 23 mmol/L (20-31); Chloride 107 mmol/L (98-107); Potassium 3.5 mmol/L (3.5-5.1); Sodium 137 mmol/L (136-145)
[2024-11-13 13:20] LABS: Calcium 8.8 mg/dL (8.7-10.4)
[2024-11-13 13:25] LABS: BUN/Creatinine Ratio 5.3 (10.0-20.0); Blood Urea Nitrogen 5 mg/dL (9-23); Glucose 85 mg/dL (74-106); Lipase 87 U/L (12-53)
[2024-11-13] MEDS: IOHEXOL 350 MG/ML 100ML IJ ONE (15:30)
--- NOTE | 2024-11-13 16:00 | DVH ---
Exam: CT CT AB PEL WITH IV CON ONLY History: abdomial pain, flank pain Comparison Study: CT CT AB PEL WITH IV CON ONLY on DOS: 06/17/24, US PELVIC on DOS: 06/15/24, CT CT AB PEL WO CON-NO ORAL OR IV on DOS: 06/15/24 TECHNIQUE: Multidetector CT of the abdomen was performed from lung bases to pubic symphysis. Imaging was performed without IV contrast. Axial, coronal and sagittal multiplanar reformats were obtained fr om the axial data set by the technologist. Radiation Dose Information: CT Dose: CTDI volume is 5.07 mGy. Dose-length product is 259.72 mGy*cm Omnipaque 300: 80 mL FINDINGS: Evaluation of solid organs is limited due to lack of intravenous contrast use. Findings: Lung Bases: No acute or significant lung base finding. Normal heart size. No pleural or pericardial effusion. Liver: The liver is normal in size. No focal lesions. Attic steatosis Gallbladder and Biliary Tree: Unremarkable Spleen: Unremarkable Pancreas: The pancreas is grossly normal in appearance. Adrenal Glands: Unremarkable Kidneys: Kidneys are grossly normal without calculi or hydronephrosis. Bladder: Grossly unremarkable for degree of distention. Bowel: The stomach is grossly normal in appearance. Small bowel and colon are normal in caliber and d istribution. The appendix is not visualized; however, no secondary findings of acute appendicitis id entified. Ascites: Absent Lymphadenopathy: No mesenteric, retroperitoneal or periportal lymphadenopathy. Abdominal Wall and Mesentery: Unremarkable. Vasculature: The visualized abdominal aorta is normal in size and caliber. Evaluation of abdominal a nd pelvic vessels is limited due to lack of intravenous contrast. Pelvic Organs: Unremarkable Musculoskeletal: No aggressive focal bony lesions, acute fractures or dislocation. Soft tissues: Unremarkable IMPRESSION: 1. No findings of bowel obstruction. 2. No calcified gallstones 3. No nephrolithiasis or hydronephrosis. 4. No free air or free fluid. . Radiation optimization: All CT scans at this facility use at least one of these dose optimization gabriel hniques: automated exposure control mA and/or kV adjustment per patient size (includes targeted exam s where dose is matched to clinical indication) or iterative reconstruction.
== END 2024-11-13 15:15 | disposition left against medical advice (07) ==
LOC: ER 09:50
DX: N39.0 Urinary tract infection, site not specified (principal); Z88.1 Allergy status to other antibiotic agents; Z79.899 Other long term (current) drug therapy
CPT/HCPCS: 36415; 74177; 80048; 81001; 81025; 82150; 83690; 85025; 99285; Q9967